=== PATIENT | female | born 1955 | race Caucasian/White ===

== ENCOUNTER 2017-06-06 20:24 | Observation (INO) ==
--- NOTE | 2017-06-06 20:35 | Emergency Department Report ---
General Adult HPI - General Stated complaint: having trouble thinking/speaking Time Seen by Provider: 06/06/17 20:32 Source: patient, family Mode of arrival: ambulatory Limitations: no limitations - History of Present Illness HPI narrative: Patient awoke this morning, and realized that she did not feel "quite right," so she and her decided to stay home from [facility]. Over the course of the day the has noticed that his appears to be having difficulty expressing her words, finding words for her ideas, and even difficulty text in words on her phone. She is able to do all of her other ADLs, was able to cook and clean without difficulty, but speech and communication seems somewhat tented and garbled. These are new acute findings, patient is a former educator, intelligent, well read, with an extensive vocabulary. Patient has no other symptoms at this time. One week ago patient had similar feelings of mild confusion but without speech problems, that was associated with significant fatigue went away after 24 hours. Currently the patient states that she does feel slightly "off," but has no physical lethargy, headaches, dizziness, nausea or vomiting, stomach symptoms, chest pain or shortness of breath, other focal neurologic deficit. No history of stroke, CVA, or risk factors. - Related Data Home Medications Medication Instructions Recorded Confirmed LORATADINE/PSE 10/240 (24hr) 1 tab PO DAILY 06/06/17 06/06/17 [Claritin-D 24 Hr] Allergies Allergy/AdvReac Type Severity Reaction Status Date / Time diphenhydramine Allergy Unknown Verified 06/06/17 20:40 meperidine Allergy Unknown Verified 06/06/17 20:40 Penicillins Allergy Unknown Verified 06/06/17 20:40 Review of Systems All systems: reviewed and negative except as stated PFSH Patient Stated Medical History Migraine Yes: long time ago Hx Kidney Stones Yes Shingles Yes Distant history of migraines Kidney stones Surgical History: T&A - Social History Smoking status: Never smoker Substance use type: does not use Alcohol intake frequency: does not drink Physical Exam - Limitations Limitations: no limitations - General General appearance: alert - Normal Exams: Head:: Normocephalic without trauma Eyes:: Pupils are PERRLA w/ EOMI, No scleral icterus, irritation, or foreign bodies noted ENMT:: No facial trauma, nasal exudates, pharyngeal erythema, or exudates are noted Neck:: Full range of motion, without adenopathy, JVD, bruits or thyromegaly Chest/Respirations:: Clear all briones, with good airflow, and symmetry bilaterally Cardiovascular:: Regular rate and rhythm, without murmur or gallop, Pulses 2+ all extremities, capillary refill, <2 seconds all extremities Abdomen:: Bowel sounds positive, soft, non-tender, non-distended, no hepatosplenomegaly, masses or bruits noted Lymphatic:: No lymphadenopathy, or lymphedema noted Musculoskeletal:: No tenderness, or deformity noted, good range of motion, all extremities Integumentary:: No rashes, hives, or bruising noted, hair and nails, without abnormality Psychiatric:: Patient exhibits, appropriate attention, emotion and affect - Neurological Exam Neurological exam: Present: alert, oriented X3, CN II-XII intact, normal gait, motor sensory deficit, reflexes normal, other (patient does have mild expressive aphasia, she is able to understand all questions and answer intelligibly, however during examination and interview, multiple times patient would hesitate or not be able to express the word that she was trying to convey. ) - Psychiatric Psychiatric exam: Present: normal affect, normal mood. Absent: depressed, agitated, anxious, flat affect, manic, homicidal ideation, suicidal ideation Course Vital Signs Temperature 97.7 F 06/06/17 20:24 Pulse Rate 72 06/06/17 20:24 Respiratory Rate 18 06/06/17 20:24 Blood Pressure 142/67 H 06/06/17 20:24 Pulse Oximetry 97 06/06/17 20:24 Temperature 97.7 F 06/06/17 20:24 Pulse Rate 79 06/06/17 22:16 Respiratory Rate 18 06/06/17 20:24 Blood Pressure 140/68 H 06/06/17 22:00 Pulse Oximetry 98 06/06/17 22:16 Medical Decision Making - MDM Narrative Medical decision making narrative: EKG - normal sinus rhythm without ischemia, ectopy, or infarction CT head - normal CBC - normal CMP - normal UA - pending TSH - normal Case is discussed with Dr. Jd Lundy, we'll admit for CVA, probable parietal lobe, start aspirin in the ER here, keep on telemetry for observation and further testing and neurologic consultation. - Lab Data Result diagrams: 06/06/17 21:26 06/06/17 21:26 Lab Results 06/06/17 06/06/17 06/06/17 Range/Units 21:26 21:26 22:17 WBC 5.5 (4.5-11.0) T/MM3 RBC 3.92 L (4.00-5.20) M/MM3 Hgb 12.2 (12-16) GM/DL Hct 37.0 (36-46) % MCV 94.4 (80-100) UM3 MCH 31.1 (26-34) UUG MCHC 33.0 (31-37) GM/DL RDW Std Deviation 43.0 (36.9-50.2) FL Plt Count 167 (130-400) T/MM3 MPV 9.8 (9.4-12.4) UM3 Immature Gran % (Auto) 0.2 (0.0-0.5) % Neut % (Auto) 33.0 (33-66) % Lymph % (Auto) 50.4 H (23-45) % [place] % (Auto) 8.2 (0-9.0) % Eos % (Auto) 7.3 H (0-4) % Baso % (Auto) 0.9 (0-2) % Neut # (Auto) 1.8 (1.8-7.7) T/MM3 Lymph # (Auto) 2.8 (1-4.8) T/MM3 [place] # (Auto) 0.5 (0-0.8) T/MM3 Eos # (Auto) 0.4 (0-0.5) T/MM3 Baso # (Auto) 0.1 (0-0.2) T/MM3 Abs Immat Gran (auto) 0.01 (0.00-0.03) T/MM3 Turbidity < 20 (0-20) Sodium 141 (134-144) MEQ/L Potassium 3.8 (3.6-5) MEQ/L Chloride 105 (98-107) MEQ/L Carbon Dioxide 26 (22-30) MEQ/L Anion Gap 10 (5-15) MEQ/L BUN 14.0 (7-17) MG/DL Creatinine 0.6 L (0.7-1.2) MG/DL GFR Calculation 101 BUN/Creatinine Ratio 23 (6-26) RATIO Glucose 88 (65-110) MG/DL Calculated Osmolality 271 (261-280) MOSM/KG Calcium 9.4 (8.4-10.2) MG/DL Total Bilirubin 0.40 (0.20-1.30) MG/DL Conjugated Bilirubin 0.00 (0.00-0.30) MG/DL Unconjugated Bilirubin 0.00 (0.00-1.1) MG/DL Icterus Index < 2 (0-7) AST 19 (14-36) U/L ALT 30 (9-52) U/L Alkaline Phosphatase 57 (38-126) U/L Troponin I < 0.012 (0-0.12) ng/ml Total Protein 7.0 (6.3-8.2) G/DL Albumin 4.0 (3.5-5.0) G/DL Globulin 3.0 (2.4-3.6) G/DL Albumin/Globulin Ratio 1.3 (1.1-2.2) RATIO TSH 2.11 (0.47-4.68) MIU/L Specimen Hemolysis < 15 (0-25) Ur Collection Type Urine, clean catch Urine Color Yellow (YELLOW) Urine Clarity Clear Urine pH 6.5 (5.0-8.0) Ur Specific [place] 1.010 L (1.015-1.025) Urine Protein Negative (NEGATIVE) Urine Glucose (UA) Negative (NEGATIVE) Urine Ketones Negative (NEGATIVE) Urine Occult Blood Negative (NEGATIVE) Urine Nitrate Negative (NEGATIVE) Urine Bilirubin Negative (NEGATIVE) Urine Urobilinogen 0.2 (NORMAL) EU/DL Ur Leukocyte Esterase Negative (NEGATIVE) Urinalysis Comment Microscopic not ind. Disposition Clinical Impression: Ischemic stroke Disposition: Discharged Home, Self-Care Condition: Stable Prescriptions: No Action LORATADINE/PSE (24hr) [Claritin-D 24 Hr] 1 tab PO DAILY Referrals: Kiran Lang MD [Family Provider] - - Seen By: physician
--- OUTSIDE RECORDS SUMMARY | 2017-06-06 20:40 | External Medical Summary | Referral Summary ---
:1955 Author [facility] Address [address] [place] [address] [place] [address] Care Team Providers Name Role Phone Kiran Lang V Primary Care Physician Encounter VC Date(s): 06/17/15 - 06/17/15 [facility] [place] [phone] [place] Discharge Disposition: 01-Home or Self Care Attending Physician: Aaron Kumari MD Admitting Physician: Aaron Kumari MD Vital Signs Most recent to oldest [Reference Range]: 1 Blood Pressure [90-140/60-90 mmHg] 160/90 mmHg *HI* (06/17/15 1:12 PM) Problem List Condition Effective Dates Status Health Status Informant Elevated blood pressure(Confirmed) Active Allergies, Adverse Reactions, Alerts Substance Reaction Severity Status diphenhydrAMINE Active meperidine Active penicillin Rash Active Medications Aleve 220 mg oral tablet 1 tabs, Oral, q8hr, as needed for pain, # 30 tabs, 11 Refill(s) Start Date: 11/28/14 Stop Date: 11/29/15 Status: OrderedClaritin-D 12 Hour oral tablet, extended release 1 tabs, Oral, Daily, as needed for allergy symptoms, # 30 tabs, 5 Refill(s) Start Date: 11/28/14 Stop Date: 11/29/15 Status: OrderedExcedrin oral tablet 2 tabs, Oral, q6hr, as needed for headache, # 50 tabs, 11 Refill(s) Start Date: 11/28/14 Stop Date: 11/29/15 Status: Orderedibuprofen 200 mg oral tablet 2 tabs, Oral, q4hr, as needed for pain, # 120 tabs, 11 Refill(s) Start Date: 11/28/14 Stop Date: 11/29/15 Status: OrderedpredniSONE 20 mg oral tablet 20 mg 1 tabs, Oral, Daily, X 5 days, # 5 tabs, 0 Refill(s), Pharmacy: [facility] [id number], 1 tabs Oral Daily,x5 days Start Date: 06/17/15 Stop Date: 06/22/15 Status: OrderedTylenol Extra Strength 500 mg oral tablet 1 tabs, Oral, q4hr, as needed for pain, # 60 tabs, 11 Refill(s) Start Date: 11/28/14 Stop Date: 11/29/15 Status: Ordered Results No data available for this section Immunizations No data available for this section Procedures No data available for this section Social History Social History Type Response Smoking Status Never smoker Assessment and Plan Extracted from: Title: Ambulatory Patient Education Author: Aaron Kumari MD Date: 06/17 Allergy Cough, Adult A cough is a reflex that helps clear your throat and airways. It can help heal the body or may be a reaction to an irritated airway. A cough may only last 2 or 3 weeks (acute) or may last more than 8 weeks (chronic). CAUSES Acute cough: Viral or bacterial infections. Chronic cough: Infections. Allergies. Asthma. Post-nasal drip. Smoking. Heartburn or acid reflux. Some medicines. Chronic lung problems (COPD). Cancer. SYMPTOMS Cough. Fever. Chest pain. Increased breathing rate. High-pitched whistling sound when breathing (wheezing). Colored mucus that you cough up (sputum). TREATMENT A bacterial cough may be treated with antibiotic medicine. A viral cough must run its course and will not respond to antibiotics. Your caregiver may recommend other treatments if you have a chronic cough. HOME CARE INSTRUCTIONS Only take [id number] or prescription medicines for pain, discomfort , or fever as directed by your caregiver. Use cough suppressants only as directed by your caregiver. Use a cold steam vaporizer or humidifier in your bedroom or home to help loosen secretions. Sleep in a semi-upright position if your cough is worse at night. Rest as needed. Stop smoking if you smoke. SEEK IMMEDIATE MEDICAL CARE IF: You have pus in your sputum. Your cough starts to worsen. You cannot control your cough with suppressants and are losing sleep. You begin coughing up blood. You have difficulty breathing. You develop pain which is getting worse or is uncontrolled with medicine. You have a fever. MAKE SURE YOU: Understand these instructions. Will watch your condition. Will get help right away if you are not doing well or get worse. Document Released: 02/19/2012 Document Revised: 11/14/2012 Document Reviewed: 02/19/2012 [facility] Patient Information 2015 [employer]. This information is not intended to replace advice given to you by your health care provider. Make sure you discuss any questions you have with your health care provider. No follow up information was provided. Extracted from: Title: Office Visit Note Author: Aaron Kumari MD Date: 06/17/15 Assessment/Plan Acute URI Zpack and prednisone 20mg po daily for five days was given. A work/school note was offered and deferred by the patient. Chest pain CXR pending. To ER if worse. No cardiac symptomsnoted. Cough Meds offered and declined. Inhaler offered and declined. Elevated blood pressure The patient reports their blood pressure has been stable at home and is not having any significant or related problems. There has been no chest pain, chest pressure, soa/blackman. Monitor bp. Likely from otc meds at this time.
--- OUTSIDE RECORDS SUMMARY | 2017-06-06 20:40 | External Medical Summary | Continuity of Care Document ---
:1955 Author Organization [facility] Allergies Medications Problems Procedures Results Encounters ACCT No. Visit Discharge Status Pt. Type Provider Facility Loc./Unit Complaint Date/Time [id number] 11/02/2013 11/02/2013 CLS Outpatient 09:20:00 23:59:59
--- OUTSIDE RECORDS SUMMARY | 2017-06-06 20:40 | External Medical Summary | Referral Summary ---
:1955 Author Organization [facility] Address [address] [place] [address] [place] [address] Care Team Providers Name Role Phone Kiran Lang V Primary Care Physician Encounter VC Date(s): 06/17/15 - 06/17/15 [facility] [place] [phone] [place] Discharge Disposition: 01-Home or Self Care Attending Physician: Aaron Kumari MD Admitting Physician: Aaron Kumari MD Vital Signs Most recent to oldest [Reference Range]: 1 Blood Pressure [90-140/60-90 mmHg] 160/90 mmHg *HI* (06/17/15 1:12 PM) Problem List Condition Effective Dates Status Health Status Informant Elevated blood pressure(Confirmed) Active Ingrown toenails(Confirmed)1 Active Obesity(Confirmed) Active Overweight(Confirmed) Active 1removal Allergies, Adverse Reactions, Alerts Substance Reaction Severity Status diphenhydrAMINE Active meperidine Active penicillin Rash Active Medications No Known Medications Results No data available for this section Immunizations No data available for this section Procedures Procedure Date Related Diagnosis Body Site Tonsillectomy 1976 Dilation and curettage1 Ingrown toenails [place] teeth 1after SAB Social History Social History Type Response Smoking [...] chronic cough. HOME CARE INSTRUCTIONS Only take [id number] or prescription medicines for pain, discomfort , [...] 02/19/2012 Document Revised: 11/14/2012 Document Reviewed: 02/19/2012 [facility] Patient Information 2015 [employer]. This information is not intended to replace [...]
[2017-06-06] MEDS ORDERED: SALINE FLUSH 10ml SYRINGE IVF PRN (20:48)
[2017-06-06] MEDS ORDERED: ASPIRIN 325 MG TABLET PO ONE (22:26)
[2017-06-06 23:31] VITALS: BMI 31.4
[2017-06-07] MEDS ORDERED: LABETALOL 20mg/4ml INJECTION IVP PRN (00:25)
[2017-06-07] MEDS ORDERED: ACETAMINOPHEN 160mg/5ml ORAL LIQUID PO PRN (00:25)
--- NOTE | 2017-06-07 02:15 | History & Physical Report ---
<Jd Lundy - Last Filed: 06/07/17 02:12> History of Present Illness Date: 06/07/17 Chief complaint: difficult expressing myself HPI: This is a 62 y/o female that woke this am and noticed that it was difficult to express what she was thinking. The reports that 1 week aog she had an episode of double vision and balance problems that was transient in duration. The patient declined evaluation at that time. The patient has been experiencing a headache over the past 2 to 3 days on left frontal region. The patient is right handed. Because of the ongoing symptoms the patient presented to the ED where her neuro workup was negative except for hesitancy in her speaking. The patient CT head reasuring. Labs reasrurring. AT this time the patient has most likely had a CVA and will be started on aspirin and admitted for workup Review of Systems Review of systems: headache as noted above, double vision as noted above, none today, no difficulty swallowing, no neck orjaw pain, no chest pain, no cough, no pnd, no orthopnea, no heart palpitations, no abdomen pain, no nauseea or vomitng, no change in bm, no focal weakness. 12 point ROS was negative except for outlined above. [facility] Patient Stated Medical History Migraine Yes: long time ago Other HEENT Yes: WEARS GLASSES Hx Kidney Stones Yes Other Musculoskeletal Yes: "SOME ARTHRITIS IN HANDS" Shingles Yes Surgical History: T&A. D and C - Social History Smoking status: Former smoker Substance use type: does not use Alcohol intake: never Household members: spouse service: No Current occupational status: employed Current residence: Apartment/Private Home Medications Home Medications Medication Instructions Recorded Confirmed Type LORATADINE/PSE (24hr) 1 tab PO DAILY 06/06/17 06/06/17 History [Claritin-D 24 Hr] Allergies Allergy/AdvReac Type Severity Reaction Status Date / Time diphenhydramine Allergy Unknown Verified 06/06/17 23:34 meperidine Allergy Unknown Verified 06/06/17 23:34 Penicillins Allergy Unknown Verified 06/06/17 23:34 Exam Vital Signs: Temperature 97.7 F 06/06/17 23:20 Pulse Rate 70 06/07/17 01:53 Respiratory Rate 16 06/06/17 23:20 Blood Pressure 135/66 06/06/17 23:20 Pulse Oximetry 96 06/06/17 23:20 Telemetry Rhythm: Sinus Rhythm Height/Weight/BMI: Height 1.7 m Weight 91.1 kg Body Mass Index 31.4 Comments: well developed well nourished female in mild distress alert and oriented x 4. - Routine HEENT Exam Head: Present: normocephalic, atraumatic Eye: Present: EOMI, PERRL, conjunctivae pink. Absent: scleral injection, nystagmus ENT: Present: mucous membranes moist - Routine Neck Exam Present: supple, full ROM - Routine Respiratory Exam Present: CTA bilaterally - Routine Cardiovascular Exam Present: RRR, S1, S2. Absent: murmur, S3 - Routine Abdominal Exam Present: soft, normoactive bowel sounds, non distended, non tender - Routine Extremities Exam Present: non tender, full ROM - Routine Back/Spine/Pelvis Exam Back/Spine: Present: full ROM - Routine Skin Exam Present: intact - Routine Neurological Exam Present: alert, oriented X3, CN II-XII intact. Absent: sensory deficit CN 2 through 12 completly intact, there is some hesitancy to her speech but subtle, sensory intact motor ? slight weakness on her left side? proprioception in tact - Routine Psychiatric Exam Present: normal affect Results - Labs CBC & Chem 7: 06/06/17 21:26 06/06/17 21:26 - Impressions normal sinus without arrhtymia Assessment and Plan (1) Ischemic stroke Current visit: Yes Status: Acute 06/07/17 02:19 This patient has most likely had a cva in the past 24 hours. not a candidate for TPA. admit to tele, frequent neuro checks. start aspirin, start statin. get echo, carotid, mri brain. with headache, consider mra head and neck in am ( if do mra neck do not need to do carotid US). This patient had signficant neuro symptoms 1 week ago and most likely tried to have stroke then. DVT Prophylaxis: SCD's GI Prophylaxis: Protonix Resuscitation Status: Full Code Hospital Course Summary Disclaimer: The visit summary below is not to be considered part of the above Progress Note. <Harvey Kate - Last Filed: 06/07/17 13:54> History of Present Illness Date: 06/07/17 [facility] Patient Stated Medical History Migraine Yes: long time ago Other HEENT Yes: WEARS GLASSES Hx Kidney Stones Yes Other Musculoskeletal Yes: "SOME ARTHRITIS IN HANDS" Shingles Yes Exam Vital Signs: Temperature 95.5 F L 06/07/17 07:46 Pulse Rate 66 06/07/17 07:46 Respiratory Rate 16 06/07/17 07:46 Blood Pressure 136/67 06/07/17 07:46 Pulse Oximetry 96 06/07/17 07:46 Height/Weight/BMI: Height 1.7 m Weight 90.4 kg Body Mass Index 31.4 Results - Labs CBC & Chem 7: 06/06/17 21:26 06/06/17 21:26 Assessment and Plan (1) Ischemic stroke Current visit: Yes Status: Acute Assessment and Plan: Have independently interviewed and examined pt. Chart reviewed. Reviewed about note and concur. CC: Difficulty getting words out and expressing her thoughts. HPI: 62 y/o female present to ED secondary to difficulty getting words out and expressing herself. Woke the morning of 06/06 with there symptoms. Could hear and understand well, but not able to talk. Sometimes words would come out garbled, but mostly inability to make words. No weakness/numbness of hands/ feet. Has been having frontal MAC[place] for the past 2-3 day - felt was allergies. About 1-2 weeks ago had episode of double vision and balance problem - sent home from work due to the symptoms interfering with her work. Did resolve spontaneously. No recent viral syndrome. Denies f/c. Does report increase sinus and allergy symptoms. Breathing well without SOA or pain. No chest pressure, palpitations, heaviness, or discomfort. Appetite stable. No ab pain or nausea. Bowels stable. No urinary pain, burning, or discomfort. No trauma. Does not fatigue. Does not take ASA daily. PMHx: Seasonal allergies, Remote Hx Migraines, OA, Hx Kidney stones. Allergies: Benadryl, Demerol, Penicillins Medications: allergy medicines as needed SHx: , works, active, no smoking. Dr Lang PCP FHx: Mother has Alzheimer's. RI and Cancer in family ROS: as above. Remainder of 10 point ROS reviewed and negative except for HPI EXAM Gen: [id number] A&O HEENT: NC/AT PERRLA EOMI no icterus MMM Neck: supple, trachea midline CV: regular without murmur Lungs: clear bilaterally. No crackles, wheezes, or distress AB: Soft nt/nd +BS No rebound or guarding EXT: no C/C/E. MS: normal strength and muscle tone in upper and lower ext NEURO: CN II-XII intact. No focal motor deficits. Vision and hearing grossly normal. PSYCH: awake, alert, appropriate. Thoughts linear. Communicates well. Speech fluent Skin: warm and dry Lab: Reviewed Assessment Acute ischemic stroke Expressive aphasia (POA) - resolved Headache - ? CVA vs allergies Seasonal allergies Osteoarthritis Obesity with BMI 31.2 Plan OBS. Neurochecks. Tele. Carotid Doppler. ECHO. Check lipid profile. Start ASA and Lipitor. PT/OT/Speech for functional assessment and treatment. Discharge disposition contingent on progression of symptoms. Discussed case with patient and her . Questions answered. Hospital Course Summary Disclaimer: The visit summary below is not to be considered part of the above Progress Note. Hospital Course: 06/06/17 Assessment Acute ischemic stroke Expressive aphasia (POA) Headache - ? CVA vs allergies Seasonal allergies Osteoarthritis Obesity with BMI 31.2 Plan OBS. Neurochecks. Tele. Carotid Doppler. ECHO. Check lipid profile. Start ASA and Lipitor. PT/OT/Speech for functional assessment and treatment. Discharge disposition contingent on progression of symptoms.
--- NOTE | 2017-06-07 07:24 | CT Scan Report ---
Indication: expressive aphasia PROCEDURE: CT head/brain wo con: Encounter: Initial Comparison: None Technique: Axial CT images through the head were performed without contrast. Iterative Reconstruction dose reducing technique was utilized. FINDINGS: The ventricles are of normal size, shape, and contour for the patient's age. There are scattered areas of low attenuation in the white matter which most likely represent changes from chronic microvascular ischemia. The brainstem, cerebellum, and cerebral hemispheres otherwise have a normal morphology and CT attenuation. There is no evidence of midline displacement. No hemorrhage, signs of acute territorial stroke, mass effect, mass lesions, or edema is evident. The visualized portions of the skull base, midface, and calvarium demonstrate no abnormality. The paranasal sinuses are well aerated and free of significant disease. Trace left mastoid effusion. IMPRESSION: No acute intracranial abnormality or hemorrhage. There is a preliminary report by [facility]. .
[2017-06-07] MEDS ORDERED: ASPIRIN 325 MG TABLET PO SCH (09:00)
--- NOTE | 2017-06-07 09:13 | Ultrasound Report ---
Indication: expressive aphasia PROCEDURE: US carotid doppler BI: TECHNIQUE: Grayscale, color and duplex Doppler imaging was performed of the carotid systems bilaterally. Velocities in cm/sec - validated velocity measurements with angiographic measurements, velocity criteria are extrapolated from diameter data as defined by the Society of Radiologists in Ultrasound Consensus Conference Radiology 2003; 229;340-346. RIGHT: PSV ICA 104 EDV ICA 38.7 PSV CCA 87.2 EDV CCA 30.8 SVR 1.2 PSV ECA 155 ICA Diameter reduction 10%-30% (1.0-1.2 PSV<110)% LEFT: PSV ICA 113 EDV ICA 36.5 PSV CCA 90.2 EDV CCA 27.9 SVR 1.3 PSV ECA 93.5 ICA Diameter reduction 20%-40% (1.2-1.4 [id number])% The right vertebral artery is patent with cephalic flow. The left vertebral artery is patent with cephalic flow. No significant atherosclerotic plaque. No velocity elevation. Vessel tortuosity. IMPRESSION: No hemodynamically significant carotid stenosis. .
[2017-06-07] MEDS ORDERED: GADOBUTROL 10mMol/10ml INJECTION IVP ONE (10:31)
[2017-06-07] MEDS ORDERED: SALINE FLUSH 10ml SYRINGE ONE (10:32)
--- NOTE | 2017-06-07 11:27 | Magnetic Resonance Report ---
EXAM: MR head/brain wo/w con [place] [facility] [place]PARISON: None available. HISTORY: expressive aphasia TECHNIQUE: Axial images through the brain are obtained in T1, T2, FLAIR, diffusion weighted, and ADC map sequences. Sagittal T1 and Coronal T2 sequences are also obtained. After administration of 9 cc Gadavist contrast, axial and coronal post contrast T1 sequences were obtained. FINDINGS: The CSF spaces are prominent likely related to atrophy in keeping with age. There may be a few periventricular deep white matter hyperintense FLAIR foci noted likely related to small vessel ischemic disease. There is one focus of hyperintense diffusion-weighted sequence signal at the left posterior parietal lobe ferris-white junction which may be hypointense on the ADC map and may represent a focus of acute small vessel ischemic disease. The suprasellar cistern and quadrigeminal plate cisterns are intact. The ferris-white junctions are distinct. No sulcal effacement is identified. The basal ganglia, posterior fossa, brainstem region appear unremarkable. There is no evidence for midline shift or mass effect. The midline structures appear unremarkable. The internal auditory canal regions appear unremarkable.No abnormal enhancing lesions are identified. A space-occupying mass is not appreciated. The paranasal sinuses are clear. There is opacification of the left mastoid air cells. Right mastoid air cells are clear. IMPRESSION: 1. There is one focus of increased hyperintense diffusion-weighted sequence signal/restricted diffusion at the left posterior parietal lobe ferris-white junction which may represent a focus of acute small vessel ischemic disease. Clinical correlation is suggested. 2. Atrophy in keeping with age. 3. There may be a few periventricular deep white matter hyperintense FLAIR foci noted likely related to small vessel ischemic disease. 4. Nonspecific opacification of the left mastoid air cells. .
--- NOTE | 2017-06-07 15:33 | Discharge Summary ---
Discharge Information Date of admission: 06/06/17 22:46 Anticipated date of discharge: 06/07/17 Attending Physician: Harvey Kate MD Primary care physician: Kiran Lang MD Consults: Inpatient Rehab Screening PT/OT/Speech - Discharge Diagnosis (1) Ischemic stroke Status: Acute Discharge Diagnosis: Discharge diagnosis Acute ischemic stroke Associated conditions and complications Expressive aphasia (POA) - resolved Headache - ? CVA vs allergies Seasonal allergies Osteoarthritis Obesity with BMI 31.2 - Procedures Procedures: ECHO taken during hospitalization - results pending. - Laboratory Labs: Admit Lab 06/06/17 21:26 WBC 5.5 Hgb 12.2 Hct 37.0 MCV 94.4 Plt Count 167 Neut % (Auto) 33.0 Lymph % (Auto) 50.4 H Admit Lab 06/06/17 21:26 Sodium 141 Potassium 3.8 Chloride 105 Carbon Dioxide 26 Anion Gap 10 BUN 14.0 Creatinine 0.6 L GFR Calculation 101 BUN/Creatinine Ratio 23 Glucose 88 Calculated Osmolality 271 Calcium 9.4 Total Bilirubin 0.40 Conjugated Bilirubin 0.00 Unconjugated Bilirubin 0.00 AST 19 ALT 30 Alkaline Phosphatase 57 Troponin I < 0.012 TSH 2.11 Pending Lab 06/07/17 04:38 Triglycerides Pending Cholesterol Pending LDL Cholesterol, Calc Pending VLDL Cholesterol Pending HDL Cholesterol Pending Cholesterol/HDL Ratio Pending - Radiology Radiology: Date of Exam: 06/06/17 PROCEDURE: CT head/brain wo con FINDINGS: The ventricles are of normal size, shape, and contour for the patient's age. There are scattered areas of low attenuation in the white matter which most likely represent changes from chronic microvascular ischemia. The brainstem, cerebellum, and cerebral hemispheres otherwise have a normal morphology and CT attenuation. There is no evidence of midline displacement. No hemorrhage, signs of acute territorial stroke, mass effect, mass lesions, or edema is evident. The visualized portions of the skull base, midface, and calvarium demonstrate no abnormality. The paranasal sinuses are well aerated and free of significant disease. Trace left mastoid effusion. IMPRESSION: No acute intracranial abnormality or hemorrhage. Date of Exam: 06/07/17 EXAM: MR head/brain wo/w con LOCATION OF DICTATION: [facility] [place] FINDINGS: The CSF spaces are prominent likely related to atrophy in keeping with age. There may be a few periventricular deep white matter hyperintense FLAIR foci noted likely related to small vessel ischemic disease. There is one focus of hyperintense diffusion-weighted sequence signal at the left posterior parietal lobe ferris-white junction which may be hypointense on the ADC map and may represent a focus of acute small vessel ischemic disease. The suprasellar cistern and quadrigeminal plate cisterns are intact. The ferris-white junctions are distinct. No sulcal effacement is identified. The basal ganglia, posterior fossa, brainstem region appear unremarkable. There is no evidence for midline shift or mass effect. The midline structures appear unremarkable. The internal auditory canal regions appear unremarkable.No abnormal enhancing lesions are identified. A space-occupying mass is not appreciated. The paranasal sinuses are clear. There is opacification of the left mastoid air cells. Right mastoid air cells are clear. IMPRESSION: 1. There is one focus of increased hyperintense diffusion-weighted sequence signal/restricted diffusion at the left posterior parietal lobe ferris-white junction which may represent a focus of acute small vessel ischemic disease. Clinical correlation is suggested. 2. Atrophy in keeping with age. 3. There may be a few periventricular deep white matter hyperintense FLAIR foci noted likely related to small vessel ischemic disease. 4. Nonspecific opacification of the left mastoid air cells. Date of Exam: 06/07/17 Type of Exam: US carotid doppler BI IMPRESSION: No hemodynamically significant carotid stenosis History of Present Illness HPI: This is a 62 y/o female that woke this am and noticed that it was difficult to express what she was thinking. The reports that 1 week aog she had an episode of double vision and balance problems that was transient in duration. The patient declined evaluation at that time. The patient has been experiencing a headache over the past 2 to 3 days on left frontal region. The patient is right handed. Because of the ongoing symptoms the patient presented to the ED where her neuro workup was negative except for hesitancy in her speaking. The patient CT head reasuring. Labs reasrurring. AT this time the patient has most likely had a CVA and will be started on aspirin and admitted for workup For complete details of the H&P refer to that document. Objective Vital signs: Temperature 95.5 F L 06/07/17 07:46 Pulse Rate 66 06/07/17 07:46 Respiratory Rate 16 06/07/17 07:46 Blood Pressure 136/67 06/07/17 07:46 Pulse Oximetry 96 06/07/17 07:46 Height/Weight/BMI: Height 1.7 m Weight 90.4 kg Body Mass Index 31.4 Hospital Course This is a general summary of the patient's hospital course. For more details refer to the complete medical record. Hospital course: 06/06/17 Assessment Acute ischemic stroke Expressive aphasia (POA) Headache - ? CVA vs allergies Seasonal allergies Osteoarthritis Obesity with BMI 31.2 Plan OBS. Neurochecks. Tele. Carotid Doppler. ECHO. Check lipid profile. Start ASA and Lipitor. PT/OT/Speech for functional assessment and treatment. Discharge disposition contingent on progression of symptoms. 06/07/17 Symptoms completely resolved. Did well with therapy. Vitals stable and patient afebrile. With complete resolution of symptoms, discharge to home appropriate option. Lipid profile and ECHO results pending. Will discharge to home. Continue ASA and Lipitor in outpatient setting for stroke prevention. Encourage healthy diet and increasing physical activities. Follow up with Dr Lang in 1 week for reevaluation. May return to work on 06/10/17. See orders for details. Time spent with patient: discharge greater than 30 minutes DVT Prophylaxis: SCD's Discharge Plan - Med Rec/Dispo Referrals/Follow Up: Kiran Lang MD [Family Provider] - 1 Week (Hospital F/U for ischemic stroke - expressive aphasia. Symptoms resolved by discharge. Lipid profile and ECHO pending. ) Prescriptions: New Aspirin [Low Dose Aspirin EC] 81 mg PO DAILY #1 bottle Atorvastatin [Lipitor] 10 mg PO HS #30 tab Continue LORATADINE/PSE 10240 (24hr) [Claritin-D 24 Hr] 1 tab PO DAILY Discharge Instructions/Outpatient Orders: Final Provider Discharge Instructions Location: Determined By Patient - Disposition 01 Discharged Home, Self-Care - Attestation Attestation Narrative: 06/07/17 15:46 I have independently interviewed and examined patient prior to discharge. See H& P for details. Medically stable for discharge to home.
[2017-06-07 15:36] VITALS: BP 125/69; PULSE 73; RESP 17; TEMP 97.2; O2SAT 97
--- NOTE | 2017-06-07 15:51 | Work/School Release ---
Work/School Release - Date Date: 06/07/17 - Work Release Remain off work/school for:: Carrie Alonso was hospitalized at [facility] from June 06 until June 07, 2017. She may return to work on June 10, 2017. Thank you. Restrictions:: None.
[2017-06-07] MEDS ORDERED: ATORVASTATIN 10 MG TABLET PO SCH (21:00)
--- NOTE | 2017-06-08 06:56 | Echocardiogram ---
DATE 06/07/2017 INDICATION Stroke. Expressive aphasia. Assess for possible source of embolus. TECHNICAL QUALITY Technically good 2-D, M-mode, Doppler echocardiographic images were submitted for interpretation. FINDINGS 1. CARDIAC CHAMBERS. Left ventricle is enlarged, measures 6.1 cm. Left atrium is normal in size, measures 3.5 cm. RV size and contractility appear normal. Aortic root diameter is normal. 2. LEFT VENTRICLE. Analysis reveals normal wall thickness. Wall motion analysis shows anteroseptal and mid anterior wall hypokinesis with increased echogenicity. LV systolic function appears to be slightly reduced with ejection fraction estimated about 50%, measured LVEF of 53%. Diastolic dysfunction, grade I/IV, is present. Careful examination does not reveal any intramural clots. 3. VALVES. Aortic and mitral valves exhibit mild sclerosis. Valve excursion is normal. Tricuspid valve structure and motion appear normal. Normal valve excursion. 4. DOPPLER. Shows trace regurgitation involving mitral and tricuspid valves, none of hemodynamic significance. Normal flow velocities without obstruction. 5. No evidence of intracardiac masses, thrombi, vegetations or shunts. 6. Central venous pressure is normal. IMPRESSION 1. LV systolic function is very slightly reduced with ejection fraction measured 53%, with anteroseptal hypokinesis suggestive of coronary artery disease. 2. LV enlargement. 3. No evidence of intracardiac masses, thrombi, vegetations or shunts. 4. No significant valvular dysfunction. 5. Patient is in sinus rhythm during the study. 6 Mild diastolic dysfunction, grade I/IV. It should be noted, if a cardiac source of embolus is strongly suspected, a transesophageal echocardiogram may assess that problem more accurately. [facility]
== END 2017-06-07 16:25 | disposition home or self-care (01) ==
LOC: MED 20:24 → ED 20:24 → SUATTDRO 22:46 → MED 23:18
PROVIDERS: ADMIT Emergency Medicine; ATTEND Hospitalist

== ENCOUNTER 2017-07-07 16:53 | Inpatient (IN) ==
[2017-07-07] MEDS ORDERED: NS 1,000 ML IV ONE (17:59)
[2017-07-07] MEDS ORDERED: ONDANSETRON 4 MG/2 ML INJECTION IVP ONE (17:59)
[2017-07-07] MEDS: SALINE FLUSH 10ml SYRINGE IVF PRN (18:11)
--- NOTE | 2017-07-07 18:21 | Emergency Department Report ---
General Adult HPI - General Chief complaint: Medical Emergency Stated complaint: weakness,headache, not eatting,suffered a stroke Time Seen by Provider: 07/07/17 17:16 - History of Present Illness HPI narrative: 62-year-old female presents to ED with progressive weakness. She was seen on June 06 and admitted with questionable TIA versus CVA symptoms. She was kept overnight and discharged with a return to work note. Her states her symptoms have continued to progress and she has been seen by both Optometry and by Dr. Lnag for double vision, progressive weakness, uncontrollable nausea and vomiting. In fact he states that she went a full week without eating because she was afraid of throwing up. She had an MRI done today for follow-up to compare to original MRI. Her then brought her directly to the ED because he states that she's become so weak he cannot help her anymore. He cannot care for her at home and states he needs to have her admitted to the hospital. He spent over an hour this morning just to get her in the shower. When he got home this afternoon trying to help her down the stairs, took 15 minutes and he had to keep pushing her knees back under her to remind her to stand straight as she was coming down the stairs. The double vision is become worse and she is now requiring an eyepatch over her glasses. Her coordination is worsening, however her expressive aphasia has improved. - Related Data Home Medications Medication Instructions Recorded Confirmed LORATADINE/PSE 10/240 (24hr) 1 tab PO DAILY PRN 06/06/17 07/07/17 [Claritin-D 24 Hr] Acetaminophen [Acetaminophen Extra 1,000 mg PO Q6H PRN 07/07/17 07/07/17 Strength] Ondansetron [Zofran Odt] 4 mg PO Q6HR PRN 07/07/17 07/07/17 Previous Rx's Medication Instructions Recorded Aspirin [Low Dose Aspirin EC] 81 mg PO DAILY #1 bottle 06/07/17 Dexamethasone Po [Decadron] 2 mg PO BID #28 tab 07/14/17 Ganciclovir. [Cytovene] 440 mg IV Q12H ml 07/14/17 Hydrocodone/APAP 5/325 [[place] 1 tab PO Q4H PRN #20 tab 07/14/17 5/325] Milk of Magnesia [Mom] 30 ml PO DAILY PRN udc 07/14/17 PEG 3350 17gm PACKET [Miralax] 17 gm PO DAILY PRN #1 bottle 07/14/17 Pyridostigmine [Mestinon] 60 mg PO TIDWM #42 tab 07/14/17 Senna + Docusate [Senna Plus 1 tab PO BID tablet 07/14/17 Tablet] Trolamine Salicylate 10% Cream 1 applic TOP QID tube 07/14/17 [Aspercreme] Allergies Allergy/AdvReac Type Severity Reaction Status Date / Time diphenhydramine Allergy Unknown Verified 07/07/17 17:16 meperidine Allergy Unknown Verified 07/07/17 17:16 Penicillins Allergy Unknown Verified 07/07/17 17:16 Review of Systems All systems: reviewed and negative except as stated PFSH Patient Stated Medical History Cerebrovascular Accident Yes: 06/06/17 Migraine Yes: long time ago Other HEENT Yes: WEARS GLASSES, SIXTH NERVE BILAT PALSY? Hx Kidney Stones Yes Other Musculoskeletal Yes: "SOME ARTHRITIS IN HANDS" Shingles Yes Clinic Medical History Ischemic stroke (Acute Medical) Viral meningitis (Acute Medical) Dehydration (Inactive Medical) Generalized weakness (Inactive Medical) Nausea & vomiting (Inactive Medical) Urinary tract infection (Inactive Medical) Viral illness (Inactive Medical) Surgical History: T&A. D and C - Social History Smoking status: Former smoker Physical Exam - Limitations Limitations: no limitations - General General appearance: alert, lethargic - Normal Exams: Head:: Normocephalic without trauma Chest/Respirations:: Clear all briones, with good airflow, and symmetry bilaterally Cardiovascular:: Regular rate and rhythm, without murmur or gallop, Pulses 2+ all extremities, capillary refill, <2 seconds all extremities Abdomen:: Bowel sounds positive, soft, non-tender, non-distended, no hepatosplenomegaly, masses or bruits noted Neurological:: cranial nerves, motor/sensory/cerebellar, exams w/o gross deficits, to observation - Neurological Exam Neurological exam: Present: CN II-XII intact, reflexes normal, other (neuro exam is difficult as patient says she is too weak to cooperate. Strength appears equal bilateral lower and upper extremities, however she is unable to overcome much more than minimal resistance, there does appear to be some ratcheting on effort.) - Psychiatric Psychiatric exam: Present: flat affect, other (withdrawn) Course Vital Signs Temperature 100.4 F 07/07/17 17:16 Pulse Rate 101 H 07/07/17 17:16 Respiratory Rate 19 07/07/17 17:16 Blood Pressure 130/73 07/07/17 17:16 Pulse Oximetry 94 07/07/17 17:16 Temperature 97.6 F 07/14/17 16:00 Pulse Rate 75 07/14/17 16:00 Respiratory Rate 16 07/14/17 16:00 Blood Pressure 127/80 07/14/17 16:00 Pulse Oximetry 98 07/14/17 16:00 Medical Decision Making - MDM Narrative Medical decision making narrative: Full medical event all performed. Labs and imaging return appropriate. Patient was unable to cooperate with exams and is unsteady on her feet. She cannot care for herself at home and her is unable to do so as well. She has no reported go tonight. I do not know if this is neurologic in that it may be an early MS-type pattern or if it is psychological. Exhibits to best categories I can come up with. Discussed this with hospitalist and agreed to admit patient and pursue evaluation in the morning. To floor for psych and neuro eval. - Medical Records Medical records reviewed: Yes: I reviewed the patient's medical records. - Lab Data Result diagrams: 07/14/17 04:33 07/14/17 04:33 Lab Results 07/07/17 07/07/17 Range/Units 18:16 18:16 WBC 8.8 (4.5-11.0) T/MM3 RBC 4.71 (4.00-5.20) M/MM3 Hgb 14.5 (12-16) GM/DL Hct 42.5 (36-46) % MCV 90.2 (80-100) UM3 MCH 30.8 (26-34) UUG MCHC 34.1 (31-37) GM/DL RDW Std Deviation 39.8 (36.9-50.2) FL Plt Count 216 (130-400) T/MM3 MPV 9.8 (9.4-12.4) UM3 Immature Gran % (Auto) 0.3 (0.0-0.5) % Neut % (Auto) 70.4 H (33-66) % Lymph % (Auto) 20.0 L (23-45) % Parke % (Auto) 7.6 (0-9.0) % Eos % (Auto) 1.4 (0-4) % Baso % (Auto) 0.3 (0-2) % Neut # (Auto) 6.2 (1.8-7.7) T/MM3 Lymph # (Auto) 1.8 (1-4.8) T/MM3 Parke # (Auto) 0.7 (0-0.8) T/MM3 Eos # (Auto) 0.1 (0-0.5) T/MM3 Baso # (Auto) 0.0 (0-0.2) T/MM3 Abs Immat Gran (auto) 0.03 (0.00-0.03) T/MM3 Turbidity < 20 (0-20) Sodium 139 (134-144) MEQ/L Potassium 3.5 L (3.6-5) MEQ/L Chloride 101 (98-107) MEQ/L Carbon Dioxide 26 (22-30) MEQ/L Anion Gap 12 (5-15) MEQ/L BUN 10.0 (7-17) MG/DL Creatinine 0.6 L (0.7-1.2) MG/DL GFR Calculation 101 BUN/Creatinine Ratio 17 (6-26) RATIO Glucose 94 (65-110) MG/DL Calculated Osmolality 267 (261-280) MOSM/KG Calcium 9.1 (8.4-10.2) MG/DL Total Bilirubin 0.50 (0.20-1.30) MG/DL Icterus Index < 2 (0-7) AST 20 (14-36) U/L ALT 29 (9-52) U/L Alkaline Phosphatase 69 (38-126) U/L Total Protein 7.5 (6.3-8.2) G/DL Albumin 4.1 (3.5-5.0) G/DL Globulin 3.4 (2.4-3.6) G/DL Albumin/Globulin Ratio 1.2 (1.1-2.2) RATIO Specimen Hemolysis < 15 (0-25) Disposition Clinical Impression: generalized weakness, double vision Disposition: To [facility] Condition: Improved Time of Disposition: 19:27 - Seen By: physician
[2017-07-07] MEDS ORDERED: ACETAMINOPHEN 325 MG TABLET PO PRN (20:31)
[2017-07-07 20:38] VITALS: BMI 30.6
[2017-07-07] MEDS ORDERED: ATORVASTATIN 10 MG TABLET PO SCH (21:00)
[2017-07-07] MEDS: NS 1,000 ML IV SCH (21:26)
--- NOTE | 2017-07-07 21:28 | History & Physical Report ---
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 Over the past weak or so, she has had continued weakness to point that she has difficulty w/ ambulation, and in addition has had double vision which started about 5-6 days ago along w/ intermittent HAs and n/v kathryn w/ certain foods. She has has also over this last month had a poor appetite and decreased po intake. She has visited w/ her PCP who ordered additional testing including an MRI today which showed not acute changes, and in fact showed very little residual lesion in the left posterior parietal area. She also had some blood drawn today at the outside clinic and patient's states it was "specialized tests" and he is not sure what exactly was tested. Patient's brought patient to the ER tonight directly from Radiology because he states that she's become so weak he cannot help her anymore. He cannot care for her at home and states he needs to have her admitted to the hospital. This is the 3rd time they have been to the ER in the past week or so. Last Wednesday she was treated empirically for a UTI w/ Macrodantin however her symptoms have continued to progress. The double vision has become worse and she is now requiring an eye patch over her glasses on the left side per the recommendation of her Auto Rebuilder who she visited with yesterday. In the ER, patient's CMP and CBC unremarkable, K was 3.5; CXR was negative and per ER physician's report the neuro exam was inconsistent, but patient did demonstrate upper and lower extremity weakness that was symmetrical. UA is pending. Patient to be admitted to the hospital for further evaluation and management. Review of Systems All systems PM: 10-point ROS was reviewed, no additional remarkable complaints except PFSH Patient Stated Medical History Cerebrovascular Accident Yes: 06/06/17 Migraine Yes: long time ago Transient Ischemic Attacks ( Yes TIA) Other HEENT Yes: WEARS GLASSES, SIXTH NERVE BILAT PALSY?, has patch for double vision Hx Kidney Stones Yes Other Musculoskeletal Yes: "SOME ARTHRITIS IN HANDS" Shingles Yes Post Menopausal Yes Clinic Medical History Ischemic stroke (Acute Medical) Dehydration (Inactive Medical) Generalized weakness (Inactive Medical) Nausea & vomiting (Inactive Medical) Urinary tract infection (Inactive Medical) Viral illness (Inactive Medical) Patient has a h/o HLD and is on a statin agent. Surgical History: T&A. D and C Family History: Pt states her Dad secondary to complications of colon cancer. Patient's PGF w/ h/o CVA. Mother of "old age" according to patient. - Social History Smoking status: Never smoker Alcohol intake frequency: does not drink Household members: spouse Medications Home Medications Medication Instructions Recorded Confirmed Type LORATADINE/PSE 10/240 (24hr) 1 tab PO DAILY PRN 06/06/17 07/07/17 History [Claritin-D 24 Hr] Acetaminophen [Acetaminophen Extra 1,000 mg PO Q6H PRN 07/07/17 07/07/17 History Strength] Nitrofurantoin Monohyd/M-Cryst 100 mg PO BID 07/07/17 07/07/17 History [Macrobid 100 mg Capsule] Ondansetron [Zofran Odt] 4 mg PO Q6HR PRN 07/07/17 07/07/17 History Allergies Allergy/AdvReac Type Severity Reaction Status Date / Time diphenhydramine Allergy Unknown Verified 07/07/17 17:16 meperidine Allergy Unknown Verified 07/07/17 17:16 Penicillins Allergy Unknown Verified 07/07/17 17:16 Exam Vital Signs: Temperature 100.8 F H 07/07/17 19:50 Pulse Rate 85 07/07/17 20:00 Respiratory Rate 20 07/07/17 20:00 Blood Pressure 133/75 07/07/17 20:00 Pulse Oximetry 94 07/07/17 20:00 Height/Weight/BMI: Height 1.7 m Weight 88.7 kg Body Mass Index 30.6 - Constitutional Present: no acute distress, well nourished, well developed - Routine HEENT Exam Head: Present: normocephalic, atraumatic Eye: Present: PERRL (Right side tested; patch on left eyeglasses) ENT: Present: mucous membranes dry - Routine Neck Exam Present: supple, full ROM. Absent: JVD - Routine Respiratory Exam Present: CTA bilaterally. Absent: dyspnea, decreased breath sounds, respiratory distress - Routine Cardiovascular Exam Present: RRR, S1, S2 - Routine Abdominal Exam Present: soft, normoactive bowel sounds, non distended, non tender - Routine Extremities Exam Absent: cyanosis, clubbing, edema - Routine Skin Exam Present: intact, dry, warm - Routine Neurological Exam Present: alert, oriented X3, motor deficit (Patient able to hold arms up in the air; strength testing w/ nursing assistance - 4/5 bilateral and symmetrical; LEs able to lift legs, bend knees against resistance; some weakness bilaterally and symmetrical). Absent: sensory deficit - Routine Psychiatric Exam Present: normal affect, normal thought process Results - Labs CBC & Chem 7: 07/07/17 18:16 07/07/17 18:16 Assessment and Plan Assessment and Plan: Assessment: 1) Acute Progressive Bilateral upper and lower extremity muscle weakness and progressive gait debility 2) Acute Diplopia - has eye patch left side per Auto Rebuilder 3) S/p CVA on 06-06-2017 - small lesion left posterior parietal lobe 4) Intermittent N/V, particularly w/ certain foods w/ overall decreased appetite and po intake 5) Intermittent MACEDO 6) Acute Dehydration 7) HLD on statin 8) Seasonal Allergies on generic Claritin Plan: Admit to Hospitalist service Neurology consult Clear liquid diet - advance as tolerated Consider Neuro-Psych consult PT/OT evals Consider eval for inpatient Rehab UA pending Labs in AM including CBC, BMP, Mg, Phos, CK and Vitamin B12 level Neuro checks Hold statin for now SCDs Telemetry IVFs that of NS tra 100 cc/hour Continue ASA therapy Primary team to follow up on labs drawn at outpatient lab yesterday I have discussed the plan of care w/ the patient and patient's spouse and they verbalized understanding. DVT Prophylaxis: SCD's Resuscitation Status: Full Code - Time spent with patient Time with patient PN: 35 minutes Hospital Course Summary Disclaimer: The visit summary below is not to be considered part of the above Progress Note. <Harvey Kate - Last Filed: 07/08/17 18:12> History of Present Illness Date: 07/08/17 [facility] Patient Stated Medical History Cerebrovascular Accident Yes: 06/06/17 Migraine Yes: long time ago Transient Ischemic Attacks ( Yes TIA) Other HEENT Yes: WEARS GLASSES, SIXTH NERVE BILAT PALSY?, has patch for double vision Hx Kidney Stones Yes Other Musculoskeletal Yes: "SOME ARTHRITIS IN HANDS" Shingles Yes Post Menopausal Yes Clinic Medical History Ischemic stroke (Acute Medical) Dehydration (Inactive Medical) Generalized weakness (Inactive Medical) Nausea & vomiting (Inactive Medical) Urinary tract infection (Inactive Medical) Viral illness (Inactive Medical) Exam Vital Signs: Temperature 98.1 F 07/08/17 17:41 Pulse Rate 79 07/08/17 17:41 Respiratory Rate 17 07/08/17 17:41 Blood Pressure 148/58 H 07/08/17 17:41 Pulse Oximetry 96 07/08/17 17:41 Height/Weight/BMI: Height 1.7 m Weight 88.3 kg Body Mass Index 30.6 Results - Labs CBC & Chem 7: 07/08/17 04:38 07/08/17 04:38 Microbiology Results: Microbiology 07/08/17 15:39 Csf, Lumbar Puncture Gram Stain - Final 07/08/17 15:39 Csf, Lumbar Puncture CSF Culture - Preliminary Culture Initiated - Results Pending Assessment and Plan Assessment and Plan: Have independently interviewed and examined pt. Chart reviewed. Case discussed with CM and Dr Wilson. Reviewed above note and concur. CC: Weakness of LE, incoordination, double vision. HPI: 62 y/o female presents to ED secondary to progressive weakness primarily of LE (but some to upper ext) and diplopia. Was hospitalize at [facility] in early June secondary to CVA. Symptoms resolved by time of discharge. Since home has had increasing weakness. Hard to get her legs to move like she wants them to. Very unsteady when tries to walk. Not reporting dizziness or vertigo. Has been having nausea with emesis. Appetite decreased. Running low grade temperature at home. No diarrhea. Stools slow. Breathing well-not SOA or congested. No chest pain, pressure or palpitations. Had MRI prior to presenting to ED. reports with her increased weakness, having a hard time with the care see needs at home - 1 fall and some near falls. PMHx: Recent CVA. HDL. Allergies Surgical Hx: T&A, D&C Meds: see MAR Allergies: Pen, Demerol. Benadryl Shx: . No smoke or ETOH. Works as a blood bank laboratory professional. Dr Lang PCP FHx: Father of colon ca. Mother of old age. ROS: as in HPI. Remainder of 10 point ROS negative Exam GEN: [id number] Awake. Looks weak. HEENT: NC/AT PERRLA EMOI MMM Neck: midline, supple; no tracheal deviation. CV: regular Lungs: clear bilaterally. No distress on RA AB: soft nt/nd +BS EXT: no edema Skin: warm and dry Neuro: CN II-XII intact. Decreased strength to LE. Psych: awake alert. Speech slow. Lab: Noted Assessment Acute Progressive Bilateral upper and lower extremity muscle weakness and progressive gait debility Acute Diplopia - has eye patch left side per Auto Rebuilder S/p CVA on 06-06-2017 - small lesion left posterior parietal lobe Intermittent N/V, particularly w/ certain foods w/ overall decreased appetite and po intake Intermittent MACEDO Acute Dehydration Hypokalemia (POA) HLD on statin Seasonal Allergies on generic Claritin Plan In discussion with Dr Wilson, will obtain LP to check to viral and autoimmune encephalitis. Check for Myastenia gravis - Dr Wilson recommends initiation of treatment with Mestinon 60mg TID. PT/OT to help functional status. Replace potassium - IV boluses orders. Potential IRU for strengthening. Discussed case with patient and her . Etiology of symptoms uncertain at this time. Hospital Course Summary Disclaimer: The visit summary below is not to be considered part of the above Progress Note. Hospital Course: 07/07/17 Admission Assessment Acute Progressive Bilateral upper and lower extremity muscle weakness and progressive gait debility Acute Diplopia - has eye patch left side per Auto Rebuilder S/P CVA on 06-06-2017 - small lesion left posterior parietal lobe Intermittent N/V, particularly w/ certain foods w/ overall decreased appetite and po intake Intermittent MACEDO Acute Dehydration Hypokalemia (POA) HLD on statin Seasonal Allergies on generic Claritin Plan Admit to Hospitalist service Neurology consult Clear liquid diet - advance as tolerated Consider Neuro-Psych consult PT/OT evals Consider eval for inpatient Rehab UA pending Labs in AM including CBC, BMP, Mg, Phos, CK and Vitamin B12 level Neuro checks Hold statin for now SCDs Telemetry IVFs that of NS tra 100 cc/hour Continue ASA therapy Primary team to follow up on labs drawn at outpatient lab yesterday 07/08/[address] Wilson, will obtain LP to check to viral and autoimmune encephalitis. Check for Myastenia gravis - Dr Wilson recommends initiation of treatment with Mestinon 60mg TID. PT/OT to help functional status. Potential IRU for strengthening. Replace potassium - IV boluses orders. Discussed case with patient and her . Etiology of symptoms uncertain at this time.
[2017-07-08] MEDS: NS 1,000 ML IV SCH ×2 (07:43→22:05)
[2017-07-08] MEDS: HYDROCODONE/APAP 5mg/325mg TABLET PO PRN ×2 (08:03→20:36)
--- NOTE | 2017-07-08 08:18 | XRay Report ---
INDICATION: weakness PROCEDURE: CHEST 2-VIEWS UPRIGHT (PA & LAT) Encounter: Initial COMPARISON: July 03, 2017 FINDINGS: The lungs are clear without evidence of focal abnormal airspace opacity. There is no pleural effusion or pneumothorax. The heart size, mediastinal contours and pulmonary vascularity are within normal limits. There is no significant skeletal abnormality. IMPRESSION: No acute cardiopulmonary disease. .
[2017-07-08] MEDS: ASPIRIN *EC* 81 MG TABLET PO SCH (09:57)
[2017-07-08] MEDS: LIDOCAINE 1% INJ 10 MG, POTASSIUM CHLORIDE INJ 10 MEQ in NS 100 ML IV SCH ×4 (10:07→13:49)
[2017-07-08] MEDS: PYRIDOSTIGMINE 60 MG TABLET PO SCH ×2 (14:17→20:29)
--- NOTE | 2017-07-08 15:24 | Consultation ---
DATE: 07/08/2017 REFERRING PHYSICIAN: Dr. Harvey Kate. CHIEF COMPLAINT: Fatigue and double vision. HISTORY OF PRESENT ILLNESS Patient is a 62-year-old female who had a recent stroke causing her to have expressive aphasia and mild dysarthria. She had a MRI of the brain that showed small lacunar stroke in the left frontal parietal head region. Her symptoms improved after the stroke and she was able to go home with no significant deficits. Later on the patient started complaining of intermittent headache which was followed by severe fatigue and double vision. She was brought to the ER multiple times with extreme fatigue and fainting symptoms and she was not found to have any abnormalities. She had another MRI of the brain yesterday that showed resolution of the old stroke and no new acute ischemic changes. There was no other signs of increased pressure in the head or mass effect. The patient had some severe headache yesterday which later improved with medication. She has been complaining of constant double vision, mainly horizontal. This has been slightly worse to the right compared to the left. She denies having any swallowing problem. She continues to have some fatigue problem. She was running some low grade fever and this has improved during admission. She denies having any neck stiffness or other meningeal problem. She has had no focal weakness or numbness. She has no coordination problem. PHYSICAL EXAMINATION The patient was awake, alert, oriented x3. Pupils were round, reactive and equal. Extraocular muscles were intact. Visual field was full and extraocular muscles were normal but the patient was having double vision horizontally to the right and to the left. It was worse to the right compared to the left with possible right sixth nerve palsy. Her speech was slow and dysarthric. Motor examination was 5-/5 in all extremities. Sensory examination was symmetrical for light touch, pinprick and temperature sensation. Deep tendon reflexes were 2/4. Plantar reflexes were normal. Coordination for [id number] were borderline bilaterally with no dysmetria and no tremor. Meningeal signs were negative. ASSESSMENT Insidious onset double vision associated with headache and malaise. This can be a manifestation of increased intracranial hypertension. Other considerations include a mild viral encephalitis. There was no evidence of acute stroke on the MRI of the brain. We cannot completely rule out a very small and punctuated ischemic stroke. PLAN 1. Obtain a spinal tap to check for increased intracranial pressure, viral meningitis and autoimmune encephalopathy. 2. Obtain labs for myasthenia gravis which can be causing the patient to have double vision and fatigue. 3. If spinal tap is negative the patient may benefit from being on Mestinon 60 mg p.o. t.i.d. to help with double vision and fatigue. 4. Consider physical and occupational therapy when the patient's condition stabilizes. HAWAD
--- NOTE | 2017-07-08 16:15 | Fluoroscopy Report ---
INDICATION: ? viral encephalitis Ordering physician:Hravey Kate MD Procedure:FL lumbar puncture LUMBAR PUNCTURE: The procedure, including the benefits, risks, and alternatives were explained in detail to the patient. All of her questions were answered. They were given the option to decline the procedure. They stated that they understood and wished to proceed. Informed consent was obtained. A pre-procedural timeout was done to verify the correct patient and proper procedure. Using sterile technique, local Xylocaine anesthesia, and fluoroscopic guidance throughout, a 20 G spinal needle was advanced from a posterior approach into the subarachnoid space at the L2-3 level. A fluoroscopic image was then obtained and archived. Removal of the stylet showed clear colorless CSF. Opening pressure was 21 centimeters of water when taken in the prone position. Then approximately 12 cc of CSF was taken off and sent to the lab for the requested studies. The needle was removed. The procedure was completed without complication. Following this, the patient was transferred to the recovery room and given discharge instructions. Impression: 1. Successful lumbar puncture performed with 12 cc of fluid removed and sent to lab. 2. Slightly elevated opening pressure of 21 cm of water in the prone position. Fluoroscopy dose: 4.03 mGy (Cumulative air kerma) Deondre Lopez RPA/SUDARSHAN performed this under my personal supervision. .
--- NOTE | 2017-07-08 16:23 | Progress Note ---
Progress Note: Discussed with RN CRITICAL CARE - would prefer to have results of neurology consult and will see patient at that point, thank you.
[2017-07-09] MEDS: HYDROCODONE/APAP 5mg/325mg TABLET PO PRN ×4 (00:19→18:30)
[2017-07-09] MEDS: NS 1,000 ML IV SCH (08:09)
[2017-07-09] MEDS: DEXAMETHASONE 4 MG/ML INJECTION IVP SCH ×2 (10:18→21:53)
[2017-07-09] MEDS: ASPIRIN *EC* 81 MG TABLET PO SCH (10:18)
[2017-07-09] MEDS: PYRIDOSTIGMINE 60 MG TABLET PO SCH ×3 (10:18→21:54)
[2017-07-09] MEDS: SALINE FLUSH 10ml SYRINGE IVF PRN ×2 (10:22→17:11)
[2017-07-09] MEDS: ONDANSETRON 4 MG/2 ML INJECTION IVP PRN ×2 (10:22→17:11)
--- NOTE | 2017-07-09 11:16 | Infectious Disease Consult ---
Infectious Disease Consult Date of Consultation: 07/09/17 Requesting Physician: Harvey Kate Reason for Consultation: antibiotic recs History of Present Illness: Ms. Alonso is a 62 y/o woman who was admitted here on 07/07/17 with headache for >1 week and weakness. She has a h/o small left posterior parietal CVA on . Over the past weak or so, she has had continued weakness to point that she has difficulty w/ ambulation, and in addition has had double vision which started about 5-6 days ago. She reports that her headache has been fairly constant, and gets up to a 10/10. It is associated with N/V and worse with bright lights. She reports subjective fevers. She had an MRI on 07/07 which showed no acute changes, and in fact showed very little residual lesion in the left posterior parietal area. She had a CXR that was unremarkable. Patient's brought her to the ER directly from Radiology because he could not care for her at home. She had visited the ED 3 times in the past week. Last Wednesday she was treated empirically for a UTI w/ Macrodantin however her symptoms have continued to progress. She was seen by Dr. Johnson who recommended empiric treatment for myasthenia and an LP. Her LP results are noted below. The HHV-6 PCR was positive. She was started on decadron yesterday. She reports that she is not really feeling any better yet. Medications Home Medications Medication Instructions Recorded Confirmed Type LORATADINE/PSE 10/240 (24hr) 1 tab PO DAILY PRN 06/06/17 07/07/17 History [Claritin-D 24 Hr] Acetaminophen [Acetaminophen Extra 1,000 mg PO Q6H PRN 07/07/17 07/07/17 History Strength] Nitrofurantoin Monohyd/M-Cryst 100 mg PO BID 07/07/17 07/07/17 History [Macrobid 100 mg Capsule] Ondansetron [Zofran Odt] 4 mg PO Q6HR PRN 07/07/17 07/07/17 History Allergies Allergy/AdvReac Type Severity Reaction Status Date / Time diphenhydramine Allergy Unknown Verified 07/07/17 17:16 meperidine Allergy Unknown Verified 07/07/17 17:16 Penicillins Allergy Unknown Verified 07/07/17 17:16 [facility] Patient Stated Medical History Cerebrovascular Accident Yes: 06/06/17 Migraine Yes: long time ago Transient Ischemic Attacks ( Yes TIA) Other HEENT Yes: WEARS GLASSES, SIXTH NERVE BILAT PALSY?, has patch for double vision Hx Kidney Stones Yes Other Musculoskeletal Yes: "SOME ARTHRITIS IN HANDS" Shingles Yes Post Menopausal Yes Clinic Medical History Ischemic stroke (Acute Medical) Dehydration (Inactive Medical) Generalized weakness (Inactive Medical) Nausea & vomiting (Inactive Medical) Urinary tract infection (Inactive Medical) Viral illness (Inactive Medical) Surgical History: T&A. D and C Family History: Pt states her Dad secondary to complications of colon cancer. Mother of "old age" according to patient. - Social History Smoking status: Never smoker Alcohol intake frequency: does not drink Current occupation: banking paralegal Current residence: Apartment/Private Home Review of Systems All systems PM: 10-point ROS was reviewed, no additional remarkable complaints except - Constitutional Constitutional: Present: anorexia, fever(s), headache(s), weakness (generalized) - EENMT Eyes: Present: diplopia Balance: Absent: vertigo - Cardiovascular Cardiovascular: Absent: chest pain - Respiratory Respiratory: Absent: cough, dyspnea - Gastrointestinal Gastrointestinal: Present: nausea, vomiting. Absent: abdominal pain, diarrhea - Genitourinary Genitourinary: Absent: dysuria - Musculoskeletal Musculoskeletal: Absent: arthralgias, joint swelling - Integumentary/Breasts Integumentary: Absent: rash - Neurological Neurological: Present: headache(s). Absent: confusion (she denies, records indicate that she's been confused), vertigo Exam Vital Signs: Temperature 98.8 F 07/09/17 07:39 Pulse Rate 73 07/09/17 07:39 Respiratory Rate 12 07/09/17 07:39 Blood Pressure 150/68 H 07/09/17 07:39 Pulse Oximetry 96 07/09/17 07:39 Height/Weight/BMI: Height 1.7 m Weight 88.1 kg Body Mass Index 30.6 - Constitutional Present: no acute distress, well nourished, well developed - Routine HEENT Exam Head: Present: normocephalic, atraumatic Eye: Present: EOMI, PERRL ENT: Present: mucous membranes moist, dentition normal - Routine Neck Exam Present: supple. Absent: lymphadenopathy - Routine Respiratory Exam Present: CTA bilaterally. Absent: accessory muscle use - Routine Cardiovascular Exam Present: RRR. Absent: murmur - Routine Abdominal Exam Present: soft, normoactive bowel sounds, non distended. Absent: tenderness - Routine Extremities Exam Absent: cyanosis, clubbing, edema, joint swelling - Routine Skin Exam Present: intact. Absent: rash - Routine Neurological Exam Present: alert, CN II-XII intact. Absent: motor deficit mental status appeared normal - Routine Psychiatric Exam Present: normal affect Results - Labs CBC & Chem 7: 07/09/17 04:08 07/09/17 04:08 Labs: Laboratory Tests 07/08/17 15:39 HHV-6 DNA (PCR) Detected A Laboratory Tests 07/08/17 15:39 CSF Appearance Clear CSF Color Colorless CSF RBC 2 H CSF Tot Nucleated Cells 59 H CSF Neutrophils 8 CSF Lymphocytes 88 CSF Monocytes 4 CSF Glucose 63 CSF Total Protein 44 Microbiology Results: Microbiology 07/08/17 15:39 Csf Viral Culture - Preliminary 07/08/17 15:39 Csf, Lumbar Puncture Gram Stain - Final 07/08/17 15:39 Csf, Lumbar Puncture CSF Culture - Preliminary Culture Initiated - Results Pending Impression: Viral meningitis/encephalitis with HHV-6 Headache, associated with N/V and diplopia Generalized weakness S/p CVA 06/06/17 Recommendation: HHV-6 typically causes disease in immunosuppressed patients, and the role of treatment in immunocompetent patients is not entirely clear. However, I think it's worth trying treatment with ganciclovir. I discussed this with patient. Will need to monitor creatinine and CBC. Spoke with pharmacy - they are going to order this from [facility]. I'm not sure of the benefit of steroids in this situation - defer to Dr. Wilson if he feels that they are definitely indicated. West Nile serology on CSF is pending.
--- NOTE | 2017-07-09 13:43 | Progress Note ---
DATE: 07/09/17 REFERRING PHYSICIAN: Dr. Harvey Kate CHIEF COMPLAINT: Fatigue and double vision. HISTORY OF PRESENT ILLNESS The patient had a spinal tap yesterday. It showed elevated white cells in the CSF and her serology testing showed a positive HHV-6 DNA PCR. The patient continues to have double vision and fatigue. She also complains of lower back pain associated with the spinal tap. Her vitals have been stable overall. Her temperature was 98.8, blood pressure 150/68 and O2 sat was 96 on room air. She had no new neurological deficit. Examination has not changed significantly since yesterday. ASSESSMENT The patient presented with nonspecific symptoms of fatigue, malaise associated with headache and double vision. Her CSF fluid test showed positive viral infection. The patient has been stable neurologically. She has had no new stroke-like symptoms. Her last MRI of the brain showed no acute lesions. PLAN 1. Start patient on Decadron 2 mg IV b.i.d. to help with symptoms of headache and brain inflammation associated with viral disease. 2. Contact the Infectious Disease specialist for guidance regarding treatment of the current viral infection. 3. Provide good fluid intake and rest. MTDD
[2017-07-09] MEDS: NS IV SCH (14:40)
[2017-07-09] MEDS: GANCICLOVIR IV SCH (14:40)
[2017-07-09] MEDS: LIDOCAINE 1% INJ 10 MG, POTASSIUM CHLORIDE INJ 10 MEQ in NS 100 ML IV SCH ×4 (15:47→20:32)
--- NOTE | 2017-07-09 17:40 | Progress Note ---
- Date 07/09/17 Subjective: F/U: Viral meningitis/encephalitis, Diplopia, Weakness Doing fair this evening. Vision is better-Diplopia resolved. Still feels very weak-difficult to move. Cognitive slowing. Some MAC[place]O. Nausea at times. Oral drive variable-not very hungry or wanting to eat. No mouth pain or pain swallowing. Breathing well-not feeling SOA or congested. No chest pain. Tolerating [place] okay. Objective Vital signs: Temperature 97.5 F 07/09/17 15:59 Pulse Rate 79 07/09/17 15:59 Respiratory Rate 16 07/09/17 15:59 Blood Pressure 136/69 07/09/17 15:59 Pulse Oximetry 95 07/09/17 15:59 Height/Weight/BMI: Height 1.7 m Weight 88.1 kg Body Mass Index 30.6 - Constitutional Present: well nourished, well developed, cooperative. Absent: combative, agitated - Routine HEENT Exam Head: Present: normocephalic, atraumatic Eye: Present: EOMI, PERRL ENT: Present: mucous membranes moist - Routine Respiratory Exam Present: CTA bilaterally. Absent: rales, respiratory distress, rhonchi, wheezes - Routine Cardiovascular Exam Present: RRR, no murmur - Routine Abdominal Exam Present: soft, non distended, non tender. Absent: normoactive bowel sounds - Routine Extremities Exam Present: cyanosis, clubbing, no edema - Routine Musculoskeletal Exam Musculoskeletal: Present: no clubbing or cyanosis. Absent: normal strength - Routine Skin Exam Present: dry, warm - Routine Neurological Exam Present: alert, CN II-XII intact, moving all extremities (Slowing ), hearing grossly intact - Routine Psychiatric Exam Present: normal affect, cooperative. Absent: normal thought process (Congitive slowing.), anxious, agitated Results - Labs CBC & Chem 7: 07/09/17 04:08 07/09/17 04:08 Microbiology Results: Microbiology 07/08/17 15:39 Csf, Lumbar Puncture Gram Stain - Final 07/08/17 15:39 Csf, Lumbar Puncture CSF Culture - Preliminary No Growth After 1 Day 07/08/17 15:39 Csf Viral Culture - Preliminary Assessment and Plan Assessment and Plan: Assessment Viral menningitis/encephalitis with HHV-6 Acute Progressive Bilateral upper and lower extremity muscle weakness and progressive gait debility Acute Diplopia Intermittent N/V, particularly w/ certain foods w/ overall decreased appetite and po intake Intermittent MACEDO Acute Dehydration Hypokalemia (POA) 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 Dr Lozada consulted for ID recommendations. Feels treatment with ganciclovir would be prudent. Potassium 3.5 but hemolysis noted - will repeat potassium boluses. Patient working with PT/OT - difficult and very exhausting. Add Miralax routinely to help decrease constipation. MOM, Dulcolax and Senna Plus available prn. Aspercreme to help neck stiffness. Continue Tylenol and [place] as needed. Continue IVF of NS at 75cc/hr as oral drive decreased. Recheck BMP in am due to hypokalemia. Repeat CBC in am due to encephalitis. Case discussed with Dr Lozada and family. Time spent with patient care 25 minutes. DVT Prophylaxis: SCD's Resuscitation Status: Full Code - Time spent with patient Time with patient PN: 25 minutes Hospital Course Summary Disclaimer: The visit summary below is not to be considered part of the above Progress Note. 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 S/P CVA on 06-06-2017 - small lesion left posterior parietal lobe Intermittent N/V, particularly w/ certain foods w/ overall decreased appetite and po intake Intermittent MACEDO Acute Dehydration Hypokalemia (POA) HLD on statin Seasonal Allergies on generic Claritin Plan Admit to Hospitalist service Neurology consult Clear liquid diet - advance as tolerated Consider Neuro-Psych consult PT/OT evals Consider eval for inpatient Rehab UA pending Labs in AM including CBC, BMP, Mg, Phos, CK and Vitamin B12 level Neuro checks Hold statin for now SCDs Telemetry IVFs that of NS tra 100 cc/hour Continue ASA therapy Primary team to follow up on labs drawn at outpatient lab yesterday 07/08/[address] Wilson, will obtain LP to check to viral and autoimmune encephalitis. Check for Myastenia gravis - Dr Wilson recommends initiation of treatment with Mestinon 60mg TID. PT/OT to help functional status. Potential IRU for strengthening. Replace potassium - IV boluses orders. Discussed case with patient and her . Etiology of symptoms uncertain at this time. 07/09/17 CSF returned positive with HHV-6 Dr Wilson recommends starting Decadron 2mg IV BID due to viral encephalitis. Dr Lozada consulted for ID recommendations. Feels treatment with ganciclovir would be prudent. Potassium 3.5 but hemolysis noted - will repeat potassium boluses. Patient working with PT/OT - difficult and very exhausting. Add Miralax routinely to help decrease constipation. MOM, Dulcolax and Senna Plus available prn. Aspercreme to help neck stiffness. Continue Tylenol and [place] as needed. Continue IVF of NS at 75cc/hr as oral drive decreased.
[2017-07-09] MEDS ORDERED: BISACODYL 10 MG SUPPOSITORY RECTALLY PRN (17:52)
[2017-07-09] MEDS: POLYETHYL GLYCOL 3350 17gm PACKET PO SCH (18:30)
[2017-07-09] MEDS ORDERED: FALL RISK - PHARMACY CONSULT XX ONE (21:17)
[2017-07-10] MEDS: NS 1,000 ML IV SCH ×3 (01:25→15:30)
[2017-07-10] MEDS: NS IV SCH ×2 (01:26→13:55)
[2017-07-10] MEDS: GANCICLOVIR IV SCH ×2 (01:26→13:55)
[2017-07-10] MEDS: ONDANSETRON 4 MG/2 ML INJECTION IVP PRN (07:21)
[2017-07-10] MEDS: SENNA + DOCUSATE TABLET PO PRN ×2 (08:51→21:01)
[2017-07-10] MEDS: HYDROCODONE/APAP 5mg/325mg TABLET PO PRN (08:51)
[2017-07-10] MEDS: POLYETHYL GLYCOL 3350 17gm PACKET PO SCH (08:51)
[2017-07-10] MEDS: ASPIRIN *EC* 81 MG TABLET PO SCH (08:51)
[2017-07-10] MEDS: PYRIDOSTIGMINE 60 MG TABLET PO SCH ×3 (08:51→17:29)
[2017-07-10] MEDS: DEXAMETHASONE 4 MG/ML INJECTION IVP SCH ×2 (08:52→21:01)
--- NOTE | 2017-07-10 14:45 | Progress Note ---
- Date 07/10/17 Subjective: F/U: Viral meningitis/encephalitis, Diplopia, Weakness Doing about the same. Vision improved-not having double vision. Still very weak to legs-movements slow. Less [place]. Neck less sore with Aspercreme. Nausea this am- decreased post Zofran. Oral drive increasing slowly. Passing some flatus, no stool. Breathing well-not feeling SOA or congested. No f/c. Objective Vital signs: Temperature 96.8 F 07/10/17 08:00 Pulse Rate 77 07/10/17 08:00 Respiratory Rate 16 07/10/17 08:00 Blood Pressure 133/67 07/10/17 08:00 Pulse Oximetry 96 07/10/17 08:00 Height/Weight/BMI: Height 1.7 m Weight 89 kg Body Mass Index 30.6 - Constitutional Present: well nourished, well developed, cooperative. Absent: agitated, somnolent, obtunded - Routine HEENT Exam Head: Present: normocephalic, atraumatic Eye: Present: EOMI, PERRL ENT: Present: mucous membranes moist - Routine Respiratory Exam Present: CTA bilaterally. Absent: rales, respiratory distress, rhonchi, wheezes , crackles - Routine Cardiovascular Exam Present: RRR, no murmur - Routine Abdominal Exam Present: soft, normoactive bowel sounds, non distended, non tender, guarding - Routine Extremities Exam Present: cyanosis, clubbing, no edema, pulses intact - Routine Musculoskeletal Exam Musculoskeletal: Present: no clubbing or cyanosis. Absent: normal strength - Routine Skin Exam Present: dry, warm - Routine Neurological Exam Present: alert, oriented X3, CN II-XII intact, motor deficit (Legs weak, hard to move ), moving all extremities, vision grossly intact, hearing grossly intact , normal speech. Absent: altered mental status - Routine Psychiatric Exam Present: normal affect, normal thought process (Congitively clear. Speech slow, but improving from admission. ), cooperative, good insight, good judgment. Absent: anxious, agitated, paranoid Results - Labs CBC & Chem 7: 07/10/17 04:09 07/10/17 04:09 Microbiology Results: Microbiology 07/08/17 15:39 Csf, Lumbar Puncture Gram Stain - Final 07/08/17 15:39 Csf, Lumbar Puncture CSF Culture - Preliminary No Growth After 1 Day 07/08/17 15:39 Csf Viral Culture - Preliminary Assessment and Plan Assessment and Plan: Assessment Viral menningitis/encephalitis with HHV-6 Acute Progressive Bilateral upper and lower extremity muscle weakness and progressive gait debility Acute Diplopia Intermittent N/V, particularly w/ certain foods w/ overall decreased appetite and po intake Intermittent MACEDO Acute Dehydration Hypokalemia (POA) Urinary retention (POA) 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 Will start bladder retraining. Encourage activities and movement. Continue Decadron and ganciclovir - day #2. Monitor lab. Case discussed with family. Time spent with patient care 25 minutes. DVT Prophylaxis: SCD's Resuscitation Status: Full Code Hospital Course Summary Disclaimer: The visit summary below is not to be considered part of the above Progress Note. 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 S/P CVA on 06-06-2017 - small lesion left posterior parietal lobe Intermittent N/V, particularly w/ certain foods w/ overall decreased appetite and po intake Intermittent MACEDO Acute Dehydration Hypokalemia (POA) HLD on statin Seasonal Allergies on generic Claritin Plan Admit to Hospitalist service Neurology consult Clear liquid diet - advance as tolerated Consider Neuro-Psych consult PT/OT evals Consider eval for inpatient Rehab UA pending Labs in AM including CBC, BMP, Mg, Phos, CK and Vitamin B12 level Neuro checks Hold statin for now SCDs Telemetry IVFs that of NS tra 100 cc/hour Continue ASA therapy Primary team to follow up on labs drawn at outpatient lab yesterday 07/08/[address] Wilson, will obtain LP to check to viral and autoimmune encephalitis. Check for Myastenia gravis - Dr Wilson recommends initiation of treatment with Mestinon 60mg TID. PT/OT to help functional status. Potential IRU for strengthening. Replace potassium - IV boluses orders. Discussed case with patient and her . Etiology of symptoms uncertain at this time. 07/09/17 CSF returned positive with HHV-6 Dr Wilson recommends starting Decadron 2mg IV BID due to viral encephalitis. Dr Lozada consulted for ID recommendations. Feels treatment with ganciclovir would be prudent. Potassium 3.5 but hemolysis noted - will repeat potassium boluses. Patient working with PT/OT - difficult and very exhausting. Add Miralax routinely to help decrease constipation. MOM, Dulcolax and Senna Plus available prn. Aspercreme to help neck stiffness. Continue Tylenol and [place] as needed. Continue IVF of NS at 75cc/hr as oral drive decreased. 07/10/17 Decrease IVF to 50 cc/hr - oral drive increasing, but still diminished. Will start bladder retraining. Encourage activities and movement. Continue Decadron and ganciclovir - day #2.
[2017-07-10] MEDS: SALINE FLUSH 10ml SYRINGE IVF PRN (21:01)
[2017-07-11] MEDS: NS IV SCH ×3 (01:55→14:29)
[2017-07-11] MEDS: GANCICLOVIR IV SCH ×3 (01:55→14:29)
[2017-07-11] MEDS: POLYETHYL GLYCOL 3350 17gm PACKET PO SCH (09:42)
[2017-07-11] MEDS: PYRIDOSTIGMINE 60 MG TABLET PO SCH ×3 (09:43→17:42)
[2017-07-11] MEDS: DEXAMETHASONE 4 MG/ML INJECTION IVP SCH ×2 (09:43→21:16)
[2017-07-11] MEDS: ASPIRIN *EC* 81 MG TABLET PO SCH (09:43)
[2017-07-11] MEDS: NS 1,000 ML IV SCH (12:36)
--- NOTE | 2017-07-11 12:51 | Progress Note ---
<Jannette Tijerina V - Last Filed: 07/11/17 12:46> - Date 07/11/17 Subjective: Carrie is seen and examined this afternoon. She is resting in bed and reports that she is tired today. No specific pain or shortness of breath. Appetite is good. Afebrile and vital signs are normal. Objective Vital signs: Temperature 97.7 F 07/11/17 07:00 Pulse Rate 71 07/11/17 07:00 Respiratory Rate 17 07/11/17 07:00 Blood Pressure 137/68 07/11/17 07:00 Pulse Oximetry 98 07/11/17 07:00 Height/Weight/BMI: Height 1.7 m Weight 89.5 kg Body Mass Index 30.6 - Constitutional Present: no acute distress, well nourished, well developed - Routine HEENT Exam Eye: Present: EOMI ENT: Present: mucous membranes moist, dentition normal - Routine Respiratory Exam Present: CTA bilaterally. Absent: wheezes - Routine Cardiovascular Exam Present: RRR, S1, S2. Absent: murmur - Routine Abdominal Exam Present: soft, normoactive bowel sounds, non distended. Absent: tenderness - Routine Extremities Exam Present: full ROM - Routine Skin Exam Present: intact, dry, warm - Routine Neurological Exam Present: alert, oriented X3, CN II-XII intact - Routine Lymphatic Exam Lymphatic: Absent: adenopathy - Routine Psychiatric Exam Present: normal affect Results - Labs CBC & Chem 7: 07/11/17 04:46 07/11/17 04:46 Microbiology Results: Microbiology 07/08/17 15:39 Csf, Lumbar Puncture Gram Stain - Final 07/08/17 15:39 Csf, Lumbar Puncture CSF Culture - Preliminary No Growth After 2 Days 07/08/17 15:39 Csf Viral Culture - Preliminary Assessment and Plan Assessment and Plan: Assessment Viral meningitis/encephalitis with HHV-6 Acute Progressive Bilateral upper and lower extremity muscle weakness and progressive gait debility Acute Diplopia Intermittent N/V, particularly w/ certain foods w/ overall decreased appetite and po intake Intermittent MACEDO Acute Dehydration Hypokalemia (POA) Urinary retention (POA) 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 Will have nursing staff remove hannah cath today. Continue on scheduled Decadron BID as recommended by Dr Wilson Ganciclovir IV for anti-viral treatment Encourage ambulation and strengthening Labs reviewed Hospital Course Summary Disclaimer: The visit summary below is not to be considered part of the above Progress Note. Hospital Course: 07/07/17 Admission Assessment Acute Progressive Bilateral upper and lower extremity muscle weakness and progressive gait debility Acute Diplopia - has eye patch left side per Lisw S/P CVA on 06-06-2017 - small lesion left posterior parietal lobe Intermittent N/V, particularly w/ certain foods w/ overall decreased appetite and po intake Intermittent MACEDO Acute Dehydration Hypokalemia (POA) HLD on statin Seasonal Allergies on generic Claritin Plan Admit to Hospitalist service Neurology consult Clear liquid diet - advance as tolerated Consider Neuro-Psych consult PT/OT evals Consider eval for inpatient Rehab UA pending Labs in AM including CBC, BMP, Mg, Phos, CK and Vitamin B12 level Neuro checks Hold statin for now SCDs Telemetry IVFs that of NS tra 100 cc/hour Continue ASA therapy Primary team to follow up on labs drawn at outpatient lab yesterday 07/08/[address] Wilson, will obtain LP to check to viral and autoimmune encephalitis. Check for Myastenia gravis - Dr Wilson recommends initiation of treatment with Mestinon 60mg TID. PT/OT to help functional status. Potential IRU for strengthening. Replace potassium - IV boluses orders. Discussed case with patient and her . Etiology of symptoms uncertain at this time. 07/09/17 CSF returned positive with HHV-6 Dr Wilson recommends starting Decadron 2mg IV BID due to viral encephalitis. Dr Lozada consulted for ID recommendations. Feels treatment with ganciclovir would be prudent. Potassium 3.5 but hemolysis noted - will repeat potassium boluses. Patient working with PT/OT - difficult and very exhausting. Add Miralax routinely to help decrease constipation. MOM, Dulcolax and Senna Plus available prn. Aspercreme to help neck stiffness. Continue Tylenol and [place] as needed. Continue IVF of NS at 75cc/hr as oral drive decreased. 07/10/17 Decrease IVF to 50 cc/hr - oral drive increasing, but still diminished. Will start bladder retraining. Encourage activities and movement. Continue Decadron and ganciclovir - day #2. 07/11/17-Plan Will have nursing staff remove hannah cath today. Continue on scheduled Decadron BID as recommended by Dr Wilson Ganciclovir IV for anti-viral treatment Encourage ambulation and strengthening Labs reviewed <Harvey Kate D - Last Filed: 07/11/17 14:57> - Date 07/11/17 Objective Vital signs: Temperature 97.7 F 07/11/17 07:00 Pulse Rate 70 07/11/17 08:00 Respiratory Rate 17 07/11/17 07:00 Blood Pressure 137/68 07/11/17 07:00 Pulse Oximetry 98 07/11/17 07:00 Height/Weight/BMI: Height 1.7 m Weight 89.5 kg Body Mass Index 30.6 Results - Labs CBC & Chem 7: 07/11/17 04:46 07/11/17 04:46 Microbiology Results: Microbiology 07/08/17 15:39 Csf, Lumbar Puncture Gram Stain - Final 07/08/17 15:39 Csf, Lumbar Puncture CSF Culture - Preliminary No Growth After 2 Days 07/08/17 15:39 Csf Viral Culture - Preliminary Assessment and Plan Assessment and Plan: Assessment Viral meningitis/encephalitis with HHV-6 Acute Progressive Bilateral upper and lower extremity muscle weakness and progressive gait debility Acute Diplopia Intermittent N/V, particularly w/ certain foods w/ overall decreased appetite and po intake Intermittent MACEDO Acute Dehydration Hypokalemia (POA) Urinary retention (POA) S/p 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 Chart reviewed. Case discussed with my ACID TESTER. Care plan developed with my supervision; agree with above. Doing better today. Has been up walking-legs feel less weak and rubbery. Strength still decreased, but improving. Still little appetite. Less nausea. No stool. Breathing well. No f/c. Lungs: clear, no distress on RA CV: regular MSE: awake alert appropriate. Speech stronger. GEN: looks more animated-less tired and weak. Plan: Continue with ganciclovir and Decadron. Continue bladder retraining- possible remove hannah tomorrow. Encourage activities. DVT Prophylaxis: SCD's Resuscitation Status: Full Code - Time spent with patient Time with patient PN: 25 minutes Hospital Course Summary Disclaimer: The visit summary below is not to be considered part of the above Progress Note.
[2017-07-12] MEDS: GANCICLOVIR IV SCH ×2 (01:52→14:21)
[2017-07-12] MEDS: NS IV SCH ×2 (01:52→14:21)
[2017-07-12] MEDS: SALINE FLUSH 10ml SYRINGE IVF PRN (02:56)
[2017-07-12] MEDS: PYRIDOSTIGMINE 60 MG TABLET PO SCH ×3 (08:44→17:35)
[2017-07-12] MEDS: POLYETHYL GLYCOL 3350 17gm PACKET PO SCH (08:44)
[2017-07-12] MEDS: ASPIRIN *EC* 81 MG TABLET PO SCH (08:45)
[2017-07-12] MEDS: DEXAMETHASONE 4 MG/ML INJECTION IVP SCH ×2 (08:45→21:39)
--- NOTE | 2017-07-12 09:21 | Progress Note ---
<Liza Darnell D - Last Filed: 07/12/17 09:16> - Date 07/12/17 Subjective: Carrie was eating breakfast. She reports that she rested well last night. She is pleasant and communicates well. She feels like her weakness is a little better and nursing staff report that she's willing to walk but is slow. She denies SOA or chest pain. PO intake improving. No abdominal pain or GI complaints, except hasn't had a bowel movement. Objective Vital signs: Temperature 96.8 F 07/12/17 08:28 Pulse Rate 88 07/12/17 08:28 Respiratory Rate 18 07/12/17 08:28 Blood Pressure 131/69 07/12/17 08:28 Pulse Oximetry 97 07/12/17 08:28 Height/Weight/BMI: Height 1.7 m Weight 88.7 kg Body Mass Index 30.6 - Constitutional Present: no acute distress, well nourished, well developed, thin - Routine HEENT Exam Head: Present: normocephalic ENT: Present: mucous membranes moist, oropharynx clear - Routine Respiratory Exam Present: CTA bilaterally - Routine Cardiovascular Exam Present: RRR, S1, S2 - Routine Abdominal Exam Present: soft, normoactive bowel sounds - Routine Extremities Exam Present: edema (trace BLE) - Routine Skin Exam Present: intact, dry, warm - Routine Neurological Exam Present: alert, oriented X3 - Routine Psychiatric Exam Present: normal affect, normal thought process, cooperative Results - Labs CBC & Chem 7: 07/11/17 04:46 07/11/17 04:46 Microbiology Results: Microbiology 07/08/17 15:39 Csf, Lumbar Puncture Gram Stain - Final 07/08/17 15:39 Csf, Lumbar Puncture CSF Culture - Final No Growth After 3 Days 07/08/17 15:39 Csf Viral Culture - Preliminary Assessment and Plan (1) Viral meningitis Current visit: Yes Status: Acute Assessment and Plan: Assessment Viral meningitis/encephalitis with HHV-6 Acute Progressive Bilateral upper and lower extremity muscle weakness and progressive gait debility Acute Diplopia - improved Intermittent N/V, particularly w/ certain foods w/ overall decreased appetite and po intake Intermittent MACEDO Acute Dehydration - resolved Hypokalemia (POA) - resolved Urinary retention (POA) 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 MG labs - pending. Continue ganciclovir per Dr. Lozada. Decadron & Mestinon - per Dr. Wilson. DC Hannah today; encourage activity & ambulation. TSH was low at 0.16 - check free T4. Good oral intake - DC IVF. K & electrolytes - stable. DVT Prophylaxis: SCD's Hospital Course Summary Disclaimer: The visit summary below is not to be considered part of the above Progress Note. Hospital Course: 07/07/17 Admission Assessment Acute Progressive Bilateral upper and lower extremity muscle weakness and progressive gait debility Acute Diplopia - has eye patch left side per Family Service Worker S/P CVA on 06-06-2017 - small lesion left posterior parietal lobe Intermittent N/V, particularly w/ certain foods w/ overall decreased appetite and po intake Intermittent MACEDO Acute Dehydration Hypokalemia (POA) HLD on statin Seasonal Allergies on generic Claritin Plan Admit to Hospitalist service Neurology consult Clear liquid diet - advance as tolerated Consider Neuro-Psych consult PT/OT evals Consider eval for inpatient Rehab UA pending Labs in AM including CBC, BMP, Mg, Phos, CK and Vitamin B12 level Neuro checks Hold statin for now SCDs Telemetry IVFs that of NS tra 100 cc/hour Continue ASA therapy Primary team to follow up on labs drawn at outpatient lab yesterday 07/08/[address] Wilson, will obtain LP to check to viral and autoimmune encephalitis. Check for Myastenia gravis - Dr Wilson recommends initiation of treatment with Mestinon 60mg TID. PT/OT to help functional status. Potential IRU for strengthening. Replace potassium - IV boluses orders. Discussed case with patient and her . Etiology of symptoms uncertain at this time. 07/09/17 CSF returned positive with HHV-6 Dr Wilson recommends starting Decadron 2mg IV BID due to viral encephalitis. Dr Lozada consulted for ID recommendations. Feels treatment with ganciclovir would be prudent. Potassium 3.5 but hemolysis noted - will repeat potassium boluses. Patient working with PT/OT - difficult and very exhausting. Add Miralax routinely to help decrease constipation. MOM, Dulcolax and Senna Plus available prn. Aspercreme to help neck stiffness. Continue Tylenol and [place] as needed. Continue IVF of NS at 75cc/hr as oral drive decreased. 07/10/17 Decrease IVF to 50 cc/hr - oral drive increasing, but still diminished. Will start bladder retraining. Encourage activities and movement. Continue Decadron and ganciclovir - day #2. 07/11/17 Will have nursing staff remove hannah cath today. Continue on scheduled Decadron BID as recommended by Dr Wilson Ganciclovir IV for anti-viral treatment 07/12/17 [place] - sill pending. MG labs - pending. Continue ganciclovir per Dr. Lozada. Decadron & Mestinon - per Dr. Wilson. DC Hannah today; encourage activity & ambulation. TSH was low at 0.16 - check free T4. Good oral intake - DC IVF. K & electrolytes - stable. <Harvey Kate - Last Filed: 07/12/17 12:07> - Date 07/12/17 Objective Vital signs: Temperature 96.8 F 07/12/17 08:28 Pulse Rate 88 07/12/17 08:28 Respiratory Rate 18 07/12/17 08:28 Blood Pressure 131/69 07/12/17 08:28 Pulse Oximetry 97 07/12/17 08:28 Height/Weight/BMI: Height 1.7 m Weight 89 kg Body Mass Index 30.6 Results - Labs CBC & Chem 7: 07/11/17 04:46 07/11/17 04:46 Microbiology Results: Microbiology 07/08/17 15:39 Csf, Lumbar Puncture Gram Stain - Final 07/08/17 15:39 Csf, Lumbar Puncture CSF Culture - Final No Growth After 3 Days 07/08/17 15:39 Csf Viral Culture - Preliminary Assessment and Plan (1) Viral meningitis Current visit: Yes Status: Acute Assessment and Plan: Assessment Viral meningitis/encephalitis with HHV-6 Acute Progressive Bilateral upper and lower extremity muscle weakness and progressive gait debility Acute Diplopia - improved Intermittent N/V, particularly w/ certain foods w/ overall decreased appetite and po intake Intermittent [place]O Acute Dehydration - resolved Hypokalemia (POA) - resolved Urinary retention (POA) S/p 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 Chart reviewed. Case discussed with Dr Lozada and my GRINDER SET UP OPERATOR GEAR TOOL. Care plan developed with my supervision; agree with above. Continuing to show improvement. Walking in halls farther and better. Legs feel less weak and rubbery. Stamina decreased. Vision doing well. Oral intake improved. No nausea. Breathing well. No f/c. Lungs: clear bilaterally CV: regular MSE: awake alert appropriate Plan: IVF stopped. Hannah removed. January D/C tele. IRU evaluation. Myasthenia lab pending-will continue with Mestinon. Will continue with ganciclovir-Dr Lozada recommending 21 day course. Encourage continue activities to help strength. Improvements very encouraging. Resuscitation Status: Full Code - Time spent with patient Time with patient PN: 25 minutes Hospital Course Summary Disclaimer: The visit summary below is not to be considered part of the above Progress Note.
--- NOTE | 2017-07-12 09:31 | Progress Note ---
Subjective Date: 07/12/17 Subjective: Mrs. Alonso reports that her headache and double vision are gone. She is feeling better. Denies nausea since Wednesday. No diarrhea. Tolerating the gangiclovir without problems. Her is here and asks about myasthenia. Exam Vital Signs: Temperature 96.8 F 07/12/17 08:28 Pulse Rate 88 07/12/17 08:28 Respiratory Rate 18 07/12/17 08:28 Blood Pressure 131/69 07/12/17 08:28 Pulse Oximetry 97 07/12/17 08:28 Height/Weight/BMI: Height 1.7 m Weight 88.7 kg Body Mass Index 30.6 - Constitutional Present: no acute distress, well nourished, well developed - Routine HEENT Exam Head: Present: normocephalic Eye: Present: EOMI, PERRL ENT: Present: mucous membranes moist, dentition normal - Routine Neck Exam Present: supple - Routine Respiratory Exam Present: CTA bilaterally - Routine Cardiovascular Exam Present: RRR. Absent: murmur - Routine Abdominal Exam Present: soft, normoactive bowel sounds, non distended. Absent: tenderness - Routine Extremities Exam Absent: cyanosis, clubbing, edema - Routine Skin Exam Present: intact. Absent: rash - Routine Neurological Exam Present: alert, oriented X3, CN II-XII intact. Absent: motor deficit - Routine Psychiatric Exam Present: normal affect, normal thought process Results - Labs CBC & Chem 7: 07/11/17 04:46 07/11/17 04:46 Microbiology Results: Microbiology 07/08/17 15:39 Csf, Lumbar Puncture Gram Stain - Final 07/08/17 15:39 Csf, Lumbar Puncture CSF Culture - Final No Growth After 3 Days 07/08/17 15:39 Csf Viral Culture - Preliminary Impression: Viral meningitis/encephalitis with HHV-6 Headache, associated with N/V and diplopia Generalized weakness S/p CVA 06/06/17 Recommendation: Will continue the ganciclovir. She is clinically better. Myasthenia hasn't been excluded, but I deferred questions regarding myasthenia to Dr. Wilson. If we treat HHV6 encephalitis, the recommended treatment course is 21 days. I' ll see if I can detect the virus in her blood. Since she's improving, I don't see any indication to repeat the LP (to document decreasing viral load of HHV6 in CSF).
--- NOTE | 2017-07-12 14:02 | Progress Note ---
DATE: 07/12/2017 REFERRING PHYSICIAN: Dr. Kate. CHIEF COMPLAINT: Double vision, fatigue and headache. HISTORY OF PRESENT ILLNESS The patient has done much better over the weekend. Her double vision and headache have improved significantly and she has no significant double vision today. Her weakness and fatigue also improved. She has been able to stand and walk without significant balance issues. Her motor strength has been in the 5- to 5/5 in all extremities. She has had no swallowing problem. Her speech has been clear. Her workup for myasthenia gravis is still pending and this will most likely be negative due to her current medical condition and the findings of viral meningitis. The patient is still benefiting from being on the Decadron for her headache, double vision and fatigue. This should be continued for now. The patient also is benefiting from Mestinon to help fatigue in general. This can be stopped if the workup for myasthenia gravis is negative. ASSESSMENT AND PLAN 1. 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 This has been improving with rest, fluid, ganciclovir and steroid. The patient' s focal neurological deficits of double vision and weakness have improved significantly. She has had no significant coordination or ataxia problem. PLAN 1. Continue current medication. 2. Follow up on the result of the acetylcholine receptors antibodies. If those are negative, the Mestinon can be stopped. 3. Continue Decadron as long as the patient is still having weakness or coordination problem. This can be tapered down slowly afterwards. 4. Follow up Dr. Lozada recommendations for treatment of viral meningitis. [facility]
[2017-07-12] MEDS: SENNA + DOCUSATE TABLET PO SCH (21:39)
[2017-07-13] MEDS: GANCICLOVIR IV SCH ×2 (02:40→14:12)
[2017-07-13] MEDS: NS IV SCH ×2 (02:40→14:12)
[2017-07-13] MEDS: SENNA + DOCUSATE TABLET PO SCH ×2 (08:16→21:05)
[2017-07-13] MEDS: POLYETHYL GLYCOL 3350 17gm PACKET PO SCH (08:16)
[2017-07-13] MEDS: PYRIDOSTIGMINE 60 MG TABLET PO SCH ×3 (08:16→17:15)
[2017-07-13] MEDS: ASPIRIN *EC* 81 MG TABLET PO SCH (08:16)
[2017-07-13] MEDS: DEXAMETHASONE 4 MG/ML INJECTION IVP SCH ×2 (08:55→21:05)
--- NOTE | 2017-07-13 13:41 | Progress Note ---
<Sierra Perez - Last Filed: 07/13/17 13:38> - Date 07/13/17 Subjective: Carrie is seen today in follow up for her probable viral meningitis vs. viral menigoencephalitis associated with HHV-6. She is seen while sitting in her chair, preparing to eat lunch, with her at the bedside. She has a pleasant disposition and reports that she is feeling great. She denies any headaches or double vision and states that her weakness and fatigue continue to improve. She denies any known fevers, chill, chest pain, shortness of breath, abdominal pain, nausea or vomiting. She has been working with physical therapy and denies any significant balance issues. No choking or signs of dysphagia. Vital signs remain stable. Her appetite is good and bowels are moving. She continues to be followed by Dr. Lozada and Dr. Wilson. Objective Vital signs: Temperature 97.1 F 07/13/17 07:10 Pulse Rate 70 07/13/17 07:10 Respiratory Rate 16 07/13/17 07:10 Blood Pressure 124/69 07/13/17 07:10 Pulse Oximetry 96 07/13/17 07:10 Height/Weight/BMI: Height 5 ft 7 in Weight 192 lb 7.417 oz Body Mass Index 30.6 Comments: Sitting in her chair, alert and orientated x 3 with pleasant disposition. - Constitutional Present: no acute distress, well nourished, well developed, cooperative - Routine HEENT Exam Head: Present: normocephalic, atraumatic Eye: Present: PERRL. Absent: conjunctival icterus ENT: Present: mucous membranes moist, dentition normal - Routine Respiratory Exam Present: CTA bilaterally. Absent: rhonchi, stridor, wheezes, crackles - Routine Cardiovascular Exam Present: RRR, S1, S2 - Routine Abdominal Exam Present: soft, non distended, non tender. Absent: rebound, guarding - Routine Extremities Exam Present: no edema, non tender, full ROM, pulses intact Comments: 5/5 strength in all extremities. - Routine Back/Spine/Pelvis Exam Back/Spine: Present: full ROM - Routine Musculoskeletal Exam Musculoskeletal: Present: no clubbing or cyanosis, normal strength, moving extremities well - Routine Skin Exam Present: intact, dry, warm. Absent: jaundice Comments: afebrile; small area to ulnar aspect of right wrist with mild erythema; no lesions, red streaking or ulcerations; concerning for IV infiltration. - Routine Neurological Exam Present: alert, oriented X3, CN II-XII intact, moving all extremities, vision grossly intact, hearing grossly intact, normal speech. Absent: facial asymmetry - Routine Lymphatic Exam Lymphatic: Absent: lymphedema - Routine Psychiatric Exam Present: normal affect, normal thought process, cooperative, good insight, good judgment Results - Labs CBC & Chem 7: 07/13/17 04:21 07/13/17 04:21 Microbiology Results: Microbiology 07/08/17 15:39 Csf, Lumbar Puncture Gram Stain - Final 07/08/17 15:39 Csf, Lumbar Puncture CSF Culture - Final No Growth After 3 Days 07/08/17 15:39 Csf Viral Culture - Preliminary Assessment and Plan (1) Viral meningitis Current visit: Yes Status: Acute Assessment and Plan: Assessment Viral meningitis/encephalitis with HHV-6 Acute Progressive Bilateral upper and lower extremity muscle weakness and progressive gait debility Acute Diplopia - improved Intermittent N/V, particularly w/ certain foods w/ overall decreased appetite and po intake Intermittent MACEDO Acute Dehydration - resolved Hypokalemia (POA) - resolved Urinary retention (POA) S/p 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 Her double vision and headaches have resolved. Seen and evaluated by Dr. Wilson who recommends continuation of Decadron for weakness as well as continuation of the Mestinon for the fatigue. Evaluation for myasthenia gravis pending. If the acetylcholine receptor antibodies are negative, the Mestinon can be discontinued. Immunology results pending. Patient's symptoms are more consistent with viral meningitis vs. viral meningoencephalitis associated with HHV-6. Continue ganciclovir for [address] Lozada. Will have PICC line placed given projected duration of treatment and as current IV appears infiltrated. Discussed with patient who agrees with PICC placement. Hannah was removed on 07/12 and patient denies any dysuria or concerns. Urinary output is adequate. Continue to encourage therapies for strengthening and improvement in functional ability. Due to the patient's high level of functioning, anticipate she will be discharged home in the near future. Patient and her expressed concern regarding continuation of treatment as it will be difficult for her to return to the infusion center twice a day for treatment. Encouraged open discussions with Dr. Lozada and case management regarding options. Appreciate their time and expertise. Will recheck CBC and BMP in AM to monitor blood counts, electrolytes and renal function. CSF cultures remain negative after 3 days. Resuscitation Status: Full Code - Time spent with patient Time with patient PN: 35 minutes Hospital Course Summary Disclaimer: The visit summary below is not to be considered part of the above Progress Note. Hospital Course: 07/07/17 Admission Assessment Acute Progressive Bilateral upper and lower extremity muscle weakness and progressive gait debility Acute Diplopia - has eye patch left side per Concrete Foreman S/P CVA on 06-06-2017 - small lesion left posterior parietal lobe Intermittent N/V, particularly w/ certain foods w/ overall decreased appetite and po intake Intermittent MACEDO Acute Dehydration Hypokalemia (POA) HLD on statin Seasonal Allergies on generic Claritin Plan Admit to Hospitalist service Neurology consult Clear liquid diet - advance as tolerated Consider Neuro-Psych consult PT/OT evals Consider eval for inpatient Rehab UA pending Labs in AM including CBC, BMP, Mg, Phos, CK and Vitamin B12 level Neuro checks Hold statin for now SCDs Telemetry IVFs that of NS tra 100 cc/hour Continue ASA therapy Primary team to follow up on labs drawn at outpatient lab yesterday 07/08/[address] Wilson, will obtain LP to check to viral and autoimmune encephalitis. Check for Myastenia gravis - Dr Wilson recommends initiation of treatment with Mestinon 60mg TID. PT/OT to help functional status. Potential IRU for strengthening. Replace potassium - IV boluses orders. Discussed case with patient and her . Etiology of symptoms uncertain at this time. 07/09/17 CSF returned positive with HHV-6 Dr Wilson recommends starting Decadron 2mg IV BID due to viral encephalitis. Dr Lozada consulted for ID recommendations. Feels treatment with ganciclovir would be prudent. Potassium 3.5 but hemolysis noted - will repeat potassium boluses. Patient working with PT/OT - difficult and very exhausting. Add Miralax routinely to help decrease constipation. MOM, Dulcolax and Senna Plus available prn. Aspercreme to help neck stiffness. Continue Tylenol and [place] as needed. Continue IVF of NS at 75cc/hr as oral drive decreased. 07/10/17 Decrease IVF to 50 cc/hr - oral drive increasing, but still diminished. Will start bladder retraining. Encourage activities and movement. Continue Decadron and ganciclovir - day #2. 07/11/17 Will have nursing staff remove hannah cath today. Continue on scheduled Decadron BID as recommended by Dr Wilson Ganciclovir IV for anti-viral treatment 07/12/17 [place] - sill pending. MG labs - pending. Continue ganciclovir per Dr. Lozada. Decadron & Mestinon - per Dr. Wilson. DC Hannah today; encourage activity & ambulation. TSH was low at 0.16 - check free T4. Good oral intake - DC IVF. K & electrolytes - stable. Plan-07/13/17: Overall, Carrie appears to be making good gains. Her double vision and headaches have resolved. Seen and evaluated by Dr. Wilson who recommends continuation of Decadron for weakness as well as continuation of the Mestinon for the fatigue. Evaluation for myasthenia gravis pending. If the acetylcholine receptor antibodies are negative, the Mestinon can be discontinued. Immunology results pending. Patient's symptoms are more consistent with viral meningitis vs. viral meningoencephalitis associated with HHV-6. Continue ganciclovir for [address] Lozada. Will have PICC line placed given projected duration of treatment and as current IV appears infiltrated. Discussed with patient who agrees with PICC placement. Hannah was removed on 07/12 and patient denies any dysuria or concerns. Urinary output is adequate. Continue to encourage therapies for strengthening and improvement in functional ability. Due to the patient's high level of functioning, anticipate she will be discharged home in the near future. Patient and her expressed concern regarding continuation of treatment as it will be difficult for her to return to the infusion center twice a day for treatment. Encouraged open discussions with Dr. Lozada and case management regarding options. Appreciate their time and expertise. Will recheck CBC and BMP in AM to monitor blood counts, electrolytes and renal function. CSF cultures remain negative after 3 days. <Melissa Bowers - Last Filed: 07/13/17 20:14> - Date 11/07/17 Objective Vital signs: Temperature 98.0 F 07/13/17 16:00 Pulse Rate 78 07/13/17 16:00 Respiratory Rate 16 07/13/17 16:00 Blood Pressure 114/65 07/13/17 16:00 Pulse Oximetry 97 07/13/17 16:00 Height/Weight/BMI: Height 1.7 m Weight 87.3 kg Body Mass Index 30.6 Results - Labs CBC & Chem 7: 07/13/17 04:21 07/13/17 04:21 Microbiology Results: Microbiology 07/08/17 15:39 Csf, Lumbar Puncture Gram Stain - Final 07/08/17 15:39 Csf, Lumbar Puncture CSF Culture - Final No Growth After 3 Days 07/08/17 15:39 Csf Viral Culture - Preliminary Assessment and Plan (1) Viral meningitis Current visit: Yes Status: Acute Assessment and Plan: I have independently evaluated and examined this patient. I reviewed the chart, the patient's history, and the CONTACT ACID PLANT OPERATOR/PA's documented findings as above. We discussed and formulated the assessment and plan as above with additions as below: Mrs. Alonso reports that she's doing well. She denied dyspnea, fevers, or nausea. She denies headache and reports that she is ambulating with a walker. Patient is alert and in no distress. Speech is fluent. Neck is supple. Respirations nonlabored, good airflow, breath sounds clear. Skin without rash. Laboratory data reviewed-free T4 pending as is acetylcholine receptor antibody. Discussed with Dr. Lozada-plan ganciclovir for 3 week course. Proceed with PICC line placement. Doing well overall-does not meet criteria for admission to IRU. Patient prefers discharge home and administration of ganciclovir at the infusion center. Hospital Course Summary Disclaimer: The visit summary below is not to be considered part of the above Progress Note.
[2017-07-14] MEDS: NS IV SCH ×2 (01:22→16:45)
[2017-07-14] MEDS: GANCICLOVIR IV SCH ×2 (01:22→16:45)
[2017-07-14 07:50] VITALS: RESP 16
--- NOTE | 2017-07-14 08:40 | Progress Note ---
Subjective Date: 07/14/17 Subjective: She denies any headache or double vision. Is eating ok, getting around ok. Hoping to go home soon. Awaiting PICC. Exam Vital Signs: Temperature 97.2 F 07/14/17 07:49 Pulse Rate 76 07/14/17 07:49 Respiratory Rate 16 07/14/17 07:49 Blood Pressure 127/62 07/14/17 07:49 Pulse Oximetry 97 07/14/17 07:49 Height/Weight/BMI: Height 1.7 m Weight 87.5 kg Body Mass Index 30.6 - Constitutional Present: no acute distress, well nourished, well developed - Routine HEENT Exam Head: Present: normocephalic, atraumatic Eye: Present: EOMI, PERRL - Routine Neck Exam Present: supple - Routine Respiratory Exam Present: CTA bilaterally - Routine Cardiovascular Exam Present: RRR. Absent: murmur - Routine Abdominal Exam Present: soft, normoactive bowel sounds, non distended. Absent: tenderness - Routine Extremities Exam Absent: cyanosis, clubbing, edema - Routine Skin Exam Present: intact. Absent: rash - Routine Neurological Exam Present: alert, oriented X3, CN II-XII intact. Absent: motor deficit - Routine Psychiatric Exam Present: normal affect, normal thought process Results - Labs CBC & Chem 7: 07/14/17 04:33 07/14/17 04:33 Labs: [place] IgG and IgM are negative Microbiology Results: Microbiology 07/08/17 15:39 Csf, Lumbar Puncture Gram Stain - Final 07/08/17 15:39 Csf, Lumbar Puncture CSF Culture - Final No Growth After 3 Days 07/08/17 15:39 Csf Viral Culture - Preliminary Impression: Viral meningitis/encephalitis with HHV-6 Headache, associated with N/V and diplopia Generalized weakness S/p CVA 06/06/17 Recommendation: Recommend completing the course of therapy with ganciclovir. This would be 3 weeks total, through 07/29/17. She will need weekly PICC dressing changes, weekly CBC with diff, and BMP. Please have labs faxed to my office at . I'm contacting lab about ordering a serum HHV6 PCR.
[2017-07-14] MEDS: DEXAMETHASONE 4 MG/ML INJECTION IVP SCH (08:41)
[2017-07-14] MEDS: SENNA + DOCUSATE TABLET PO SCH (08:41)
[2017-07-14] MEDS: PYRIDOSTIGMINE 60 MG TABLET PO SCH ×3 (08:41→18:23)
[2017-07-14] MEDS: ASPIRIN *EC* 81 MG TABLET PO SCH (08:41)
[2017-07-14] MEDS: POLYETHYL GLYCOL 3350 17gm PACKET PO SCH (08:41)
--- NOTE | 2017-07-14 09:32 | Progress Note ---
- Date 07/14/17 Subjective: F/U: Viral meningitis/encephalitis, Diplopia, Weakness Doing well this morning. Strength and stability improving. Vision stable. Eating well. Bowels moving. Breathing well. No f/c. Objective Vital signs: Temperature 97.2 F 07/14/17 07:49 Pulse Rate 76 07/14/17 07:49 Respiratory Rate 16 07/14/17 07:49 Blood Pressure 127/62 07/14/17 07:49 Pulse Oximetry 97 07/14/17 07:49 Height/Weight/BMI: Height 1.7 m Weight 87.5 kg Body Mass Index 30.6 - Constitutional Present: no acute distress, well nourished, well developed, cooperative. Absent : somnolent, obtunded - Routine HEENT Exam Head: Present: normocephalic, atraumatic Eye: Present: EOMI, PERRL, conjunctival icterus ENT: Present: mucous membranes moist - Routine Respiratory Exam Present: CTA bilaterally. Absent: rales, respiratory distress, rhonchi, wheezes , crackles - Routine Cardiovascular Exam Present: RRR, no murmur - Routine Abdominal Exam Present: soft, normoactive bowel sounds, non distended, non tender - Routine Extremities Exam Present: no edema, pulses intact. Absent: cyanosis, clubbing - Routine Musculoskeletal Exam Musculoskeletal: Present: no clubbing or cyanosis, normal strength - Routine Skin Exam Present: dry, warm - Routine Neurological Exam Present: alert, oriented X3, CN II-XII intact, moving all extremities, vision grossly intact, hearing grossly intact, normal speech. Absent: motor deficit, altered mental status, facial asymmetry - Routine Psychiatric Exam Present: normal affect, normal thought process, cooperative, good insight, good judgment Results - Labs CBC & Chem 7: 07/14/17 04:33 07/14/17 04:33 Microbiology Results: Microbiology 07/08/17 15:39 Csf, Lumbar Puncture Gram Stain - Final 07/08/17 15:39 Csf, Lumbar Puncture CSF Culture - Final No Growth After 3 Days 07/08/17 15:39 Csf Viral Culture - Preliminary Assessment and Plan (1) Viral meningitis Current visit: Yes Status: Acute Assessment and Plan: Assessment Viral meningitis/encephalitis with HHV-6 Acute Progressive Bilateral upper and lower extremity muscle weakness and progressive gait debility Acute Diplopia - improved Intermittent N/V, particularly w/ certain foods w/ overall decreased appetite and po intake Intermittent MACEDO Acute Dehydration - resolved Hypokalemia (POA) - resolved Urinary retention (POA) - resolved 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 Continue ganciclovir 440mg IV BID through 07/29/17 for a [address] Lozada recommending weekly PICC dressing changes, weekly CBC with diff, and BMP with lab faxed to Dr Lozada's office at [phone]. Will continue with Decadron 2mg BID for another 2 weeks due to viral encephalitis. West Nile serology negative. Myasthenia markers negative. Can continue Mestinon due to weakness for another 2 week. Medically stable for discharge to home. Will have patient f/u wit Dr Lang in 1 week. Lipitor held this hospitalization - could restart in 3-6 weeks. Case discussed with CM. Time spent with patient care and discharge greater than 30 minutes. DVT Prophylaxis: SCD's Resuscitation Status: Full Code Hospital Course Summary Disclaimer: The visit summary below is not to be considered part of the above Progress Note. 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 Intermittent N/V, particularly w/ certain foods w/ overall decreased appetite and po intake Intermittent MACEDO Acute Dehydration Hypokalemia (POA) HLD on statin Seasonal Allergies on generic Claritin Plan Admit to Hospitalist service Neurology consult Clear liquid diet - advance as tolerated Consider Neuro-Psych consult PT/OT evals Consider eval for inpatient Rehab UA pending Labs in AM including CBC, BMP, Mg, Phos, CK and Vitamin B12 level Neuro checks Hold statin for now SCDs Telemetry IVFs that of NS tra 100 cc/hour Continue ASA therapy Primary team to follow up on labs drawn at outpatient lab yesterday 07/08/[address] Wilson, will obtain LP to check to viral and autoimmune encephalitis. Check for Myastenia gravis - Dr Wilson recommends initiation of treatment with Mestinon 60mg TID. PT/OT to help functional status. Potential IRU for strengthening. Replace potassium - IV boluses orders. Discussed case with patient and her . Etiology of symptoms uncertain at this time. 07/09/17 CSF returned positive with HHV-6 Dr Wilson recommends starting Decadron 2mg IV BID due to viral encephalitis. Dr Lozada consulted for ID recommendations. Feels treatment with ganciclovir would be prudent. Potassium 3.5 but hemolysis noted - will repeat potassium boluses. Patient working with PT/OT - difficult and very exhausting. Add Miralax routinely to help decrease constipation. MOM, Dulcolax and Senna Plus available prn. Aspercreme to help neck stiffness. Continue Tylenol and [place] as needed. Continue IVF of NS at 75cc/hr as oral drive decreased. 07/10/17 Decrease IVF to 50 cc/hr - oral drive increasing, but still diminished. Will start bladder retraining. Encourage activities and movement. Continue Decadron and ganciclovir - day #2. 07/11/17 Will have nursing staff remove hannah cath today. Continue on scheduled Decadron BID as recommended by Dr Wilson Ganciclovir IV for anti-viral treatment 07/12/17 West Nile - sill pending. MG labs - pending. Continue ganciclovir per Dr. Lozada. Decadron & Mestinon - per Dr. Wilson. DC Hannah today; encourage activity & ambulation. TSH was low at 0.16 - check free T4. Good oral intake - DC IVF. K & electrolytes - stable. 07/13/17: Overall, Carrie appears to be making good gains. Her double vision and headaches have resolved. Seen and evaluated by Dr. Wilson who recommends continuation of Decadron for weakness as well as continuation of the Mestinon for the fatigue. Evaluation for myasthenia gravis pending. If the acetylcholine receptor antibodies are negative, the Mestinon can be discontinued. Immunology results pending. Patient's symptoms are more consistent with viral meningitis vs. viral meningoencephalitis associated with HHV-6. Continue ganciclovir for [address] Lzoada. Will have PICC line placed given projected duration of treatment and as current IV appears infiltrated. Discussed with patient who agrees with PICC placement. Hannah was removed on 07/12 and patient denies any dysuria or concerns. Urinary output is adequate. Continue to encourage therapies for strengthening and improvement in functional ability. Due to the patient's high level of functioning, anticipate she will be discharged home in the near future. Patient and her expressed concern regarding continuation of treatment as it will be difficult for her to return to the infusion center twice a day for treatment. Encouraged open discussions with Dr. Lozada and case management regarding options. Appreciate their time and expertise. Will recheck CBC and BMP in AM to monitor blood counts, electrolytes and renal function. CSF cultures remain negative after 3 days. 07/14/17 PICC line placement to continue IV ganciclovir in outpatient setting at infusion center. Continue ganciclovir 440mg IV BID through 07/29/17 for a [address] Lozada recommending weekly PICC dressing changes, weekly CBC with diff, and BMP with lab faxed to Dr Lozada's office at [phone]. Will continue with Decadron 2mg BID for another 2 weeks due to viral encephalitis. Myasthenia marker pending. Can continue Mestinon due to weakness for another 2 week. If myasthenia marker positive, would continue Mestinon. Medically stable for discharge to home. Will have patient f/u wit Dr Lang in 1 week. Check on pending West Nile and myasthenia serology. Lipitor held this hospitalization - could restart in 3-6 weeks.
--- NOTE | 2017-07-14 15:24 | Discharge Summary ---
Discharge Information Date of admission: 07/07/17 19:33 Anticipated date of discharge: 07/14/17 Attending Physician: Dr Kate Primary care physician: Kiran Lang MD Consults: Physician Consult: Lenora Lozada Reason For Exam: viral encephalopathy Physician Consult: Dr Wilson IRU Screening Dietary consult PT/OT/Speech - Discharge Diagnosis (1) Viral meningitis Status: Acute Discharge diagnosis Viral meningitis/encephalitis with HHV-6 Associated conditions and complications Acute Progressive Bilateral upper and lower extremity muscle weakness and progressive gait debility Acute Diplopia - improved Intermittent N/V, particularly w/ certain foods w/ overall decreased appetite and po intake Intermittent MACEDO Acute Dehydration - resolved Hypokalemia (POA) - resolved Urinary retention (POA) - resolved 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 viral encephalitis LUMBAR PUNCTURE: The procedure, including the benefits, risks, and alternatives were explained in detail to the patient. All of her questions were answered. They were given the option to decline the procedure. They stated that they understood and wished to proceed. Informed consent was obtained. A pre- procedural timeout was done to verify the correct patient and proper procedure. Using sterile technique, local Xylocaine anesthesia, and fluoroscopic guidance throughout, a 20 G spinal needle was advanced from a posterior approach into the subarachnoid space at the L2-3 level. A fluoroscopic image was then obtained and archived. Removal of the stylet showed clear colorless CSF. Opening pressure was 21 centimeters of water when taken in the prone position. Then approximately 12 cc of CSF was taken off and sent to the lab for the requested studies. The needle was removed. The procedure was completed without complication. Following this, the patient was transferred to the recovery room and given discharge instructions. Impression: 1. Successful lumbar puncture performed with 12 cc of fluid removed and sent to lab. 2. Slightly elevated opening pressure of 21 cm of water in the prone position. --- Date of Procedure: 07/14/17 Type of procedure: PICC line placement. - Laboratory Labs: Admit Lab 07/07/17 18:16 WBC 8.8 Hgb 14.5 Hct 42.5 MCV 90.2 Plt Count 216 Neut % (Auto) 70.4 H Lymph % (Auto) 20.0 L [place] % (Auto) 7.6 Eos % (Auto) 1.4 Admit Lab 07/07/17 07/08/17 18:16 04:38 Sodium 139 Potassium 3.5 L Chloride 101 Carbon Dioxide 26 Anion Gap 12 BUN 10.0 Creatinine 0.6 L GFR Calculation 101 BUN/Creatinine Ratio 17 Glucose 94 Calculated Osmolality 267 Calcium 9.1 Total Bilirubin 0.50 Icterus Index < 2 AST 20 ALT 29 Alkaline Phosphatase 69 Creatine Kinase < 20 L Total Protein 7.5 Albumin 4.1 Globulin 3.4 Albumin/Globulin Ratio 1.2 Thyroid Tests 07/08/17 07/12/17 04:38 10:37 TSH 0.16 L D Free T4 1.38 Positive CSF Serology 07/08/17 15:39 HHV-6 DNA (PCR) Detected West Nile Serology 07/08/17 15:39 CSF West Nile IgG Ab Negative CSF West Nile IgM Ab Negative Myasthenia Tests 07/08/17 14:10 AChR Muscle Binding Ab 0.00 Ca Channel Bind Ab - N 0.00 Ca Channel Bind Ab P/Q 0.00 Striated Muscle Ab Negative Acetylchol Rcpt Modu Ab 2 07/14/17 04:33 07/14/17 04:33 - Microbiology Microbiology 07/08/17 15:39 Csf, Lumbar Puncture Gram Stain - Final 07/08/17 15:39 Csf, Lumbar Puncture CSF Culture - Final No Growth After 3 Days 07/08/17 15:39 Csf Viral Culture - Preliminary - Radiology Radiology: Date of Exam: 07/07/17 PROCEDURE: CHEST 2-VIEWS UPRIGHT (PA & LAT) FINDINGS: The lungs are clear without evidence of focal abnormal airspace opacity. There is no pleural effusion or pneumothorax. The heart size, mediastinal contours and pulmonary vascularity are within normal limits. There is no significant skeletal abnormality. IMPRESSION: No acute cardiopulmonary disease. History of Present Illness HPI: Carrie is 62-year-old female w/ h/o small left posterior parietal CVA on 06-06-17 who presents to ED with progressive bilateral upper and lower extremity weakness. 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 Over the past weak or so, she has had continued weakness to point that she has difficulty w/ ambulation, and in addition has had double vision which started about 5-6 days ago along w/ intermittent HAs and n/v kathryn w/ certain foods. She has has also over this last month had a poor appetite and decreased po intake. She has visited w/ her PCP who ordered additional testing including an MRI today which showed not acute changes, and in fact showed very little residual lesion in the left posterior parietal area. She also had some blood drawn today at the outside clinic and patient's states it was "specialized tests" and he is not sure what exactly was tested. Patient's brought patient to the ER tonight directly from Radiology because he states that she's become so weak he cannot help her anymore. He cannot care for her at home and states he needs to have her admitted to the hospital. This is the 3rd time they have been to the ER in the past week or so. Last Wednesday she was treated empirically for a UTI w/ Macrodantin however her symptoms have continued to progress. The double vision has become worse and she is now requiring an eye patch over her glasses on the left side per the recommendation of her Purchase Order Checker who she visited with yesterday. In the ER, patient's CMP and CBC unremarkable, K was 3.5; CXR was negative and per ER physician's report the neuro exam was inconsistent, but patient did demonstrate upper and lower extremity weakness that was symmetrical. UA is pending. Patient to be admitted to the hospital for further evaluation and management. For complete details of the H&P refer to that document. Objective Vital signs: Temperature 97.2 F 07/14/17 07:49 Pulse Rate 76 07/14/17 07:49 Respiratory Rate 16 07/14/17 07:49 Blood Pressure 127/62 07/14/17 07:49 Pulse Oximetry 97 07/14/17 07:49 Height/Weight/BMI: Height 1.7 m Weight 87.5 kg Body Mass Index 30.6 Hospital Course This is a general summary of the patient's hospital course. For more details refer to the complete medical record. 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 Labs in AM including CBC, BMP, Mg, Phos, CK and Vitamin B12 level Neuro checks Hold statin for now SCDs Telemetry IVFs that of NS tra 100 cc/hour Continue ASA therapy 07/08/[address] Wilson, will obtain LP to check to viral and autoimmune encephalitis. Check for Myastenia gravis - Dr Wilson recommends initiation of treatment with Mestinon 60mg TID. PT/OT to help functional status. Potential IRU for strengthening. Replace potassium - IV boluses orders. Discussed case with patient and her . Etiology of symptoms uncertain at this time. 07/09/17 CSF returned positive with HHV-6 Dr Wilson recommends starting Decadron 2mg IV BID due to viral encephalitis. Dr Lozada consulted for ID recommendations. Feels treatment with ganciclovir would be prudent. Potassium 3.5 but hemolysis noted - will repeat potassium boluses. Patient working with PT/OT - difficult and very exhausting. Add Miralax routinely to help decrease constipation. MOM, Dulcolax and Senna Plus available prn. Aspercreme to help neck stiffness. Continue Tylenol and [place] as needed. Continue IVF of NS at 75cc/hr as oral drive decreased. 07/10/17 Decrease IVF to 50 cc/hr - oral drive increasing, but still diminished. Will start bladder retraining. Encourage activities and movement. Continue Decadron and ganciclovir - day #2. 07/11/17 Continue on scheduled Decadron BID as recommended by Dr Wilson. Ganciclovir IV for anti-viral treatment. 07/12/17 West [place] - sill pending. MG labs - pending. Continue ganciclovir per Dr. Lozada. Decadron & Mestinon - per Dr. Wilson. DC [place] today; encourage activity & ambulation. TSH was low at 0.16 - check free T4. Normal - euthyroid sick. Good oral intake - DC IVF. K & electrolytes - stable. 07/13/17: Overall, Carrie appears to be making good gains. Her double vision and headaches have resolved. Seen and evaluated by Dr. Wilson who recommends continuation of Decadron for weakness as well as continuation of the Mestinon for the fatigue. Evaluation for myasthenia gravis pending. If the acetylcholine receptor antibodies are negative, the Mestinon can be discontinued. Immunology results pending. Patient's symptoms are more consistent with viral meningitis vs. viral meningoencephalitis associated with HHV-6. Continue ganciclovir for [address] Lozada. Will have PICC line placed given projected duration of treatment and as current IV appears infiltrated. Discussed with patient who agrees with PICC placement. [place] was removed on 07/12 and patient denies any dysuria or concerns. Urinary output is adequate. Continue to encourage therapies for strengthening and improvement in functional ability. Due to the patient's high level of functioning, anticipate she will be discharged home in the near future. Patient and her expressed concern regarding continuation of treatment as it will be difficult for her to return to the infusion center twice a day for treatment. Encouraged open discussions with Dr. Lozada and case management regarding options. Appreciate their time and expertise. Will recheck CBC and BMP in AM to monitor blood counts, electrolytes and renal function. CSF cultures remain negative after 3 days. 07/14/17 Discharge Day PICC line placement to continue IV ganciclovir in outpatient setting at infusion center. Continue ganciclovir 440mg IV BID through 07/29/17 for a [address] Lozada recommending weekly PICC dressing changes, weekly CBC with diff, and BMP with lab faxed to Dr Lozada's office at [phone]. Will continue with Decadron 2mg BID for another 2 weeks due to viral encephalitis. Can decrease to once a day on 07/24 to taper off. West Nile serology negative. Myasthenia markers negative. Can continue Mestinon due to weakness for another 2 week. Medically stable for discharge to home. Will have patient f/u wit Dr Lang in 1 week. Lipitor held this hospitalization - could restart in 3-6 weeks. See orders for details. Time spent with patient: discharge greater than 30 minutes DVT Prophylaxis: SCD's Discharge Plan - Discharge Disposition Discharge Date: 07/14/17 Disposition: Discharged Home, Self-Care *Condition: Improved *Reason For Visit: progressive weakness,S/P CVA, vision changes, gait - Discharge Medications *Discharge Medications: New PEG 3350 17gm PACKET [Miralax] 17 gm PO DAILY PRN #1 bottle PRN Reason: Constipation Pyridostigmine [Mestinon] 60 mg PO TIDWM #42 tab Trolamine Salicylate 10% Cream [Aspercreme] 1 applic TOP QID tube Ganciclovir. [Cytovene] 440 mg IV Q12H ml Milk of Magnesia [Mom] 30 ml PO DAILY PRN udc PRN Reason: Constipation Dexamethasone Po [Decadron] 2 mg PO BID #28 tab Hydrocodone/APAP 5/325 [[place] 5/325] 1 tab PO Q4H PRN #20 tab PRN Reason: Pain Senna + Docusate [Senna Plus Tablet] 1 tab PO BID tablet Continue LORATADINE/PSE 10/240 (24hr) [Claritin-D 24 Hr] 1 tab PO DAILY PRN PRN Reason: Allergy Symptoms Acetaminophen [Acetaminophen Extra Strength] 1,000 mg PO Q6H PRN PRN Reason: Pain Aspirin [Low Dose Aspirin EC] 81 mg PO DAILY #1 bottle Ondansetron [Zofran Odt] 4 mg PO Q6HR PRN PRN Reason: Nausea Discontinued Nitrofurantoin Monohyd/M-Cryst [Macrobid 100 mg Capsule] 100 mg PO BID Atorvastatin [Lipitor] 10 mg PO HS #30 tab - Discharge Packet/Instructions *Diet: Regular *Activity: As tolerated *Pain Management/Treatment: Tylenol and [place] as needed *Wound Care: N/A Additional Instructions: May hold on using Lipitor until antiviral medications finished. Use Decadron 2mg twice a day until 06/23/17. On 06/23/17 may decrease to 2mg once a day in am. Continue Decadron until tablets finished. *Expected Signs/Symptoms: Improvement of strength and functional abilities *Notify Physician if: Temp >100.4. Worsening weakness. Confusion. *During Business Hours Contact: Dr Lang *After Business Hours Contact: Call [facility] [place] [facility] [place] and have Dr Lang or his covering provider paged *Pending Lab/Results: Follow up w/your PCP - Referrals/Follow Up *Referrals/Follow Up: Lenora Lozada MD [Physician] - 2 Weeks Kiran Lang MD [Family Provider] - 1 Week (Hospital follow up. [place] and Myastenia serology negative. ) - Patient Handouts Patient Handouts: Weakness (GEN) - Dismissal Complete Discharge Instructions are:: Complete Attestation Narriative - Attestation Attestation Narrative: 07/14/17 15:42 I have independently interviewed and examined patient prior to discharge. See my progress note from today for details. Medically stable for discharge to home.
--- NOTE | 2017-07-14 15:57 | Work/School Release ---
Work/School Release - Date Date: 07/14/17 - Work Release Remain off work/school for:: Carrie Restrepo was admitted to [facility] on 07/07/17. She was discharge to home on 07/14/17. She will need twice daily infusions in the outpatient setting. Anticipate patient being able to return to work in early August. Thank you.
[2017-07-14 17:25] VITALS: BP 127/80; PULSE 75; TEMP 97.6; O2SAT 98
[2017-07-14] MEDS ORDERED: DEXAMETHASONE 1 MG TABLET PO SCH (21:00)
== END 2017-07-14 18:20 | disposition home or self-care (01) | DRG 75 ==
LOC: ED 16:53 → MED 19:33 → SUATTDRO 19:33 → MED 20:10
PROVIDERS: ADMIT Hospitalist; ATTEND Internal Medicine